=== PATIENT | female | born 2005 | race Caucasian/White ===

== ENCOUNTER 2024-05-24 14:45 | Inpatient (IN) ==
--- NOTE | 2024-05-24 15:32 | Emergency Department Note ---
Impression & Plan Depression with suicidal ideation, Cystitis ED Provider Note NAME: DAVID VORA AGE: 19 SEX: F : 2005 ARRIVES VIA: Walk-In INFORMANT: Patient, ED PROVIDER(S): Terence Fofana MD CHIEF COMPLAINT: Suicidal ideation with plan, outpatient referral MEDICAL DECISION MAKING: Patient presents with the above. Blood work was obtained. Patient was seen and evaluated by the psych family caseworker after being medically cleared. Referrals were made and the patient was accepted to [facility]. Patient's urinalysis shows concern for bladder infection the patient was ordered Keflex. Discussion w/ other healthcare providers: ED case management Prior /Outside records reviewed: none Differential diagnosis: Mood disorder, infection, hypoglycemia, electrolyte abnormalities, dehydration, medication side effect among others were considered. Diagnostics, as interpreted by me: ECG: None Medical decision rules: Suicide risk severity score Imaging studies: None HPI: Patient presents due to concern for suicidal ideation with plan. The patient reports that she had thoughts last evening of slitting her wrists in order to kill herself. The patient states that she has had prior thoughts of self-harm before but is never completely gone through with it. The patient has done smaller cuts prior. The patient states that she is in the middle of a current "episode." Patient reports that she did establish with Send was seen in person today and referred here for further evaluation and treatment. Patient states that her sleep and appetite have been poor. 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 She does get along with her roommate. No HI or AVH. Patient does not take any current medication for her depression. Patient currently not willing to elaborate as to the cause of this current "episode." PAST MEDICAL HISTORY: See Below PAST SURGICAL HISTORY: See Below SOCIAL HISTORY: See Below HOME MEDICATIONS: See Below ALLERGIES: See Below VITALS: See Below PHYSICAL EXAMINATION: GENERAL: Tearful but nontoxic in appearance. EYE EXAM: Normal conjunctiva. PERRL, no anisocoria and EOM's grossly intact w/o pain. OROPHARYNX: Moist mucus membranes, grossly normal dentition. NECK: Trachea midline, no stridor. Supple, no nuchal rigidity, no adenopathy, non-tender. No signs of meningismus. FROM of the neck with good chin to chest and neck extension. LUNGS: Clear to auscultation. Normal chest wall mechanics. HEART: NSR, no MRG. ABDOMEN: Abdomen soft, non-tender, no masses, no rebound or guarding. BACK: No CVA TTP. SKIN: No rashes and no bruising. UPPER EXTREMITIES: Upper extremities are grossly normal. LOWER EXTREMITIES: Grossly normal, no edema. NEURO EXAM: A&O x3, cranial nerves II-XII grossly intact, normal speech, moves all 4 extremities. Psych: Tearful, positive SI with plan denies HI or AVH. Past Med/Surg History Problem List (Updated 05/24/24 @ 21:29 by Terence Fofana MD) Cystitis (Acute) Depression with suicidal ideation (Acute) Social History Smoking Status: Never smoker Preferred Language: Vietnamese Communication Ability: Effective Technician Inventory Specialist Required: No Beliefs That Will Affect Care: None Feels Safe at Home: Yes Gender Identity: Female Assistive Devices: Glasses Allergies Allergies Allergy/AdvReac Type Severity Reaction Status Date / Time No Known Allergies Allergy Unverified 05/24/24 16:22 Home Meds Home Medications Medication Instructions Recorded Confirmed No Known Home Medications 05/24/24 05/24/24 Results & Data (ED) Vital Signs Vital Signs - 24 hr 05/24/24 15:13 05/24/24 15:43 05/24/24 18:21 Temperature 36.6 C Temperature Source Skin Pulse Rate 105 H Pulse Rate [Finger] 80 Respiratory Rate 18 16 Blood Pressure 140/90 Blood Pressure [Right Arm] 127/78 Blood Pressure Mean 106 Blood Pressure Mean [Right Arm] 94 Pulse Oximetry 98 98 Oxygen Delivery Method Room Air Room Air Sepsis Recent Fever Within 48 Hours No Sepsis New/Unexplained Change in Mental Status No Sepsis Action Taken by Nursing No Action Required Home Medications Current Medication List: was personally reviewed by me Laboratory Data Attestation: I reviewed the patient's lab results. 05/24/24 15:38 05/24/24 15:38 Lab Results 05/24/24 05/24/24 Range/Units 15:25 15:38 WBC 7.33 (4.8-10.8) K/ul RBC 4.69 (4.20-5.40) M/uL Hgb 14.6 (12.0-16.0) g/dl Hct 42.0 (37.0-47.0) % MCV 89.6 (80.0-100.0) fL MCH 31.1 (25.0-34.0) pg MCHC 34.8 (32.0-36.0) g/dL RDW Std Deviation 41.4 (36.4-46.3) fL RDW Coeff of Jian 12.6 (11.5-14.5) % Plt Count 261 (130-400) K/uL MPV 10.4 (9.4-12.4) fL Immature Gran % (Auto) 0.4 % Neut % (Auto) 79.7 % Lymph % (Auto) 15.3 % [place] % (Auto) 4.1 % Eos % (Auto) 0.0 % Baso % (Auto) 0.5 % Neut # (Auto) 5.84 (1.40-6.50) K/uL Lymph # (Auto) 1.12 L (1.20-3.40) K/uL [place] # (Auto) 0.30 (0.11-0.59) K/uL Eos # (Auto) 0.00 (0.00-0.50) K/uL Baso # (Auto) 0.04 (0.00-0.20) K/uL Immature Gran # (Auto) 0.03 (0.01-0.20) K/uL Sodium 139 (136-145) mmol/L Potassium 3.7 (3.5-5.1) mmol/L Chloride 105 (98-107) mmol/L Carbon Dioxide 24 (21-32) mmol/L Anion Gap 10 (3-11) BUN 12 (6-23) mg/dl Creatinine 0.75 (0.6-1.2) mg/dl Est Cr Clr Drug Dosing 102.5 ml/min eGFR 116.09 BUN/Creatinine Ratio 16.0 (10-20) Glucose 105 H (70-99(Fasting)) mg/dl Calcium 10.6 H (8.6-10.3) mg/dl Total Bilirubin 0.9 (0.2-1.0) mg/dl AST 18 (13-39) U/L ALT 16 (7-52) U/L Alkaline Phosphatase 82 (34-104) U/L Total Protein 8.3 (6.0-8.3) gm/dl Albumin 5.1 H (3.4-5.0) gm/dl Globulin 3.2 (2.5-4.0) gm/dl Albumin/Globulin Ratio 1.6 (0.9-2) TSH 0.703 (0.300-4.500) uIu/ml Urine Color Dark Yellow Urine Appearance Cloudy A (Clear) Urine pH 6.0 (4.5-7.5) Ur Specific [place] 1.032 H (1.000-1.030) Urine Protein 1+ H (Negative) Urine Glucose (UA) Negative (Negative) Urine Ketones 3+ H (Negative) Urine Blood Trace H (Negative) Urine Nitrite Positive A (Negative) Urine Bilirubin 1+ H (Negative) Urine Urobilinogen Negative (Negative) Ur Leukocyte Esterase Trace H (Negative) Urine WBC (Auto) 0-5 (0-5) /hpf Urine RBC (Auto) 3-5 H (0-2) /hpf U Hyaline Cast (Auto) 0-2 (0-2) /lpf U Epithel Cells (Auto) 6-10 H (0-2) /hpf Urine Bacteria (Auto) 4+ H (None Seen) Urine Test Negative (Negative) Salicylates < 3.0 L (3.0-30) mg/dl Urine Opiates Screen Neg (Neg) Ur Methadone, Qual Neg (Neg) Urine Fentanyl Screen Neg (Neg) Acetaminophen < 3 L (10-30) ug/ml Urine Barbiturates Neg (Neg) Ur Phencyclidine (PCP) Neg (Neg) U Amphetamin/Meth Scrn Neg (Neg) MDMA (Ecstasy) Screen Neg (Neg) U Benzodiazepines Scrn Neg (Neg) Ur Cocaine Metabolite Neg (Neg) U Marijuana (THC) Screen Pos H (Neg) Ethyl Alcohol mg/dL < 10.0 (<10.0) mg/dl SARS-CoV-2, RNA, NAAT NEGATIVE (NEGATIVE) Administered Medications Discontinued Medications Cephalexin HCl (Cephalexin 250 Mg Cap) 500 mg PO NOW ONE Stop: 05/24/24 17:32 Last Admin: 05/24/24 17:55 Dose: 500 mg Documented By: GONZÁLEZ Discharge Plan Visit Data Chief Complaint: Mental Health Evaluation Stated Complaint: CAPS REF, MENTAL HEALTH EVAL ED Provider: Terence Fofana Discharge Problem: Depression with suicidal ideation, Cystitis Patient Disposition: Admitted As Inpatient Discharge Instructions Interventions: ED Discharge Assessment Last Done: 05/24/24 18:21
[2024-05-24 15:54] LABS: Basophils # (auto) 0.04 K/uL (0.00-0.20); Basophils % (auto) 0.5 %; Hemoglobin 14.6 g/dl (12.0-16.0); Immature Granulocytes # (auto) 0.03 K/uL (0.01-0.20); Immature Granulocytes % (auto) 0.4 %; Lymphocytes # (auto) 1.12 K/uL (1.20-3.40); Lymphocytes % (auto) 15.3 %; Mean Corpuscular Hemoglobin 31.1 pg (25.0-34.0); Mean Corpuscular Hgb Conc 34.8 g/dL (32.0-36.0); Mean Corpuscular Volume 89.6 fL (80.0-100.0); Mean Platelet Volume 10.4 fL (9.4-12.4); Monocytes % (auto) 4.1 %; Neutrophils # (auto) 5.84 K/uL (1.40-6.50); Neutrophils % (auto) 79.7 %; Platelet Count 261 K/uL (130-400); RDW Coefficient of Variation 12.6 % (11.5-14.5); RDW Standard Deviation 41.4 fL (36.4-46.3); Red Blood Count 4.69 M/uL (4.20-5.40); White Blood Count 7.33 K/ul (4.8-10.8)
[2024-05-24 15:58] LABS: Pregnancy Test, Urine Negative (Negative)
[2024-05-24 16:09] LABS: Albumin Level 5.1 gm/dl (3.4-5.0); Bilirubin,Total 0.9 mg/dl (0.2-1.0); Calcium 10.6 mg/dl (8.6-10.3); Potassium 3.7 mmol/L (3.5-5.1)
[2024-05-24 16:14] LABS: Acetaminophen < 3 ug/ml (10-30); Salicylate < 3.0 mg/dl (3.0-30)
[2024-05-24 16:15] LABS: Albumin Globulin Ratio 1.6 (0.9-2); Creatinine Clr Calc Pharmacy 102.5 ml/min; Globulin 3.2 gm/dl (2.5-4.0); Total Protein 8.3 gm/dl (6.0-8.3)
[2024-05-24 16:26] LABS: Amphetamines+Metham, Urine Neg (Neg); Barbiturates, Urine Neg (Neg); Benzodiazepine, Urine Neg (Neg); Cocaine, Urine Neg (Neg); Fentanyl, Urine Neg (Neg); MDMA (Ecstacy), Urine Neg (Neg); Marijuana, Urine Pos (Neg); Methadone, Urine Neg (Neg); Opiate, Urine Neg (Neg); Phencyclidine, Urine Neg (Neg)
[2024-05-24 16:27] LABS: Thyroid Stimulating Hormone 0.703 uIu/ml (0.300-4.500)
[2024-05-24 16:29] LABS: Appearance Urine Cloudy (Clear); Bacteria Urine Automated 4+ (None Seen); Bilirubin Urine 1+ (Negative); Blood Urine Trace (Negative); Cast Urine Automated 0-2 /lpf (0-2); Color Urine Dark Yellow; Glucose Urine UA Negative (Negative); Ketones Urine 3+ (Negative); Leukocyte Esterase Urine Trace (Negative); Nitrite Urine Positive (Negative); Protein Urine 1+ (Negative); Specific Gravity Urine 1.032 (1.000-1.030); Urobilinogen Urine Negative (Negative); WBC Urine Automated 0-5 /hpf (0-5)
[2024-05-24] MEDS ORDERED: SODIUM CHLORIDE 0.65% NA SOLN 45 ML (OCEAN) PRN (17:51)
[2024-05-24] MEDS ORDERED: BISMUTH SUBSALICYLATE 262 MG CHEW PO PRN (17:51)
[2024-05-24] MEDS ORDERED: MAGNESIUM HYDROXIDE SUSP 30 ML UDC PO PRN (17:51)
[2024-05-24] MEDS ORDERED: ALUMINUM/MAGNESIUM SUSP 30 ML UDC PO PRN (17:51)
[2024-05-24] MEDS: cephALEXin 250 MG CAP PO ONE (17:55)
[2024-05-24] MEDS: ACETAMINOPHEN 325 MG TAB PO PRN (22:01)
[2024-05-24] MEDS: hydrOXYzine HCl 25 MG TAB PO PRN (22:46)
--- NOTE | 2024-05-25 09:14 | History & Physical ---
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 Diagnostically consistent with major depressive disorder, generalized anxiety disorder with panic attacks, sleep onset insomnia and possible cluster B t raits/BPD. Discussed medication treatment options in detail. Discussed risks, benefits and alternatives. Patient would like to start and consented to sertraline for MDD/QIANA. Reviewed side effects including but not limited to: GI, THAKUR, sexual side effects, and counseled on black box warning of potential for emergence of or increased SI and need to let staff know should this occur or should they feel unsafe. Also discussed importance of seeking emergency care following discharge if this side effect occurs in the future. Overall I spent a total of 75 minutes for this admission including review of chart records, review of labwork, direct evaluation of the patient, counseling the patient, ordering medication, risk assessment, discussion with the psychiatric liason RN and documentation in the electronic health record. (1) Depression with suicidal ideation: (2) MDD (major depressive disorder), recurrent episode, severe: (3) Generalized anxiety disorder with panic attacks: Plan 05/25/2024: The patient was admitted to the [facility] (health system mental health unit) on q15 min checks (behavioral with suicide precautions) for safety. The patient will participate in group, recreational, and milieu therapies and will be offered additional individual and family sessions as clinically appropriate. -Start Zoloft 25mg daily -Reviewed that Vistaril is available prn for anxiety/insomnia -Discussed option for [facility] that includes CBT/DBT after discharge if they accept her insurance vs individual therapist -Symptom questionnaire: [place] BPD screen Inventory Assets Strengths: supportive relationships, willing to get treatment Needs: safety and stabilization, medication adjustment, additional coping skills, increased outpatient services Suicide Risk Level Suicide Risk Level: High-Moderate (q15 min suicide checks) (depression with SI with plan prior to admission, feels safe in the hospital and feels able to ask for support) Risk Factors Assessment Male: No : Yes Do You Have Access To A Gun?: No Health Problems: No Mental Health Diagnoses: Yes Substance Use Disorders: No Previous Attempt: Yes Family History of Suicide: No Previous Psychiatric Hospitalization: No Hopelessness: Yes Protective Factors Assessment 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 Chief Complaint "I'm trying to keep myself alive". History of Present Illness She presents for psychiatric admission for worsening depression and SI with plan of cutting herself. She cannot identify any recent stressors, she notes this depressive episode started at the end of March and "I should have been so happy I love the holidays and had no stress but instead I was so sad". She notes "I can't feel happiness and I don't care about things". She's tearful discussing her distress from the depression and anxiety. Recent self-harm via cutting a few weeks ago. Her mother, a nurse, does not understand mental health, which has been a source of frustration for Khadijah. She endorses depressive symptoms since late March including tearfulness, anhedonia (never wants to watch movies or do anything she typically enjoys), decreased motivation, social isolation, helplessness, hopelessness, decreased energy, decreased appetite and also restricts, and difficulty falling asleep. SI has been occurring for a long time at a baseline level but it intensified significantly over recent days to the point she worried she would act on the thoughts and almost the day prior to admission. Her depression, anxiety and SI seems to worsen at night with racing internal anxious thoughts. She also endorses symptoms of anxiety including generalized worries, nausea, shakiness, easily overwhelmed, racing thoughts and panic attacks (has had 4-5 this month, typically occurs at night). She recently quit smoking marijuana, which she had been using to manage her symptoms, including appetite and anxiety. She is not currently prescribed any psychiatric medications. Psychiatric ROS notable for no current nor history of symptoms of abhilash, psychosis, PTSD, OCD. She describes a pattern of some restrictive eating since about 6th grade-often worsens with stressors, has been eating one meal a day and some snacks recently. Self-harms via cutting. Past Psychiatric History Current Psychiatric Diagnosis: Unspecified Depressive Disorder Outpatient Services: none Previous Psych Admissions: none Do You Have Access To A Gun?: No History of Previous Suicide Attempt: Yes Describe Attempts in the Past: 5 years ago attempt via cutting, never sought tx Past Medication Trials: none Past Head Trauma/Neuro History hx two concussions Allergies Allergy/AdvReac Type Severity Reaction Status Date / Time No Known Allergies Allergy Unverified 05/24/24 16:22 Home Medications Medication Instructions Recorded Confirmed Type No Known Home Medications 05/24/24 05/24/24 History Family History Family History of: Depression and Alcoholism/Drug Abuse (father, maternal side) Family Mental Health History Comment: Cousin- depression Aunt- depression Alcohol History Hx of Alcohol Use Over the Past 12 Months: No AUDIT Total Score: 0 Smoking Use Have You Smoked or Used Tobacco Products in the Last 30 Days: No Smoking Status: Never smoker Substance History Hx of Prescription Med Misuse Over the Past 12 Months: No Hx of Over the Counter Med Misuse Over the Past 12 Months: No Hx of Inhalent Misuse Over the Past 12 Months: No Hx of Organic Substance Use Over the Past 12 Months: Yes (daily marijuana use) Hx of Illegal Substances/Street Drug Use Over Past 12 Months: No Problems as a Result of Past Substance Use: None Identified Stopping using cannabis on Wednesday-liked that it helped with appetite but didn't like how long it impacted her and the stigma of it. Personal History Living Arrangements: Dorm Childhood: [place], has a younger sister, parents when she was [age] Highest Grade Completed: College ([employer] in [employer] science) Employment Status: Student Marital Status: Single Beliefs That Will Affect Care: None Current Legal Problems: No Hx Legal Problems: No Hx Traumatic Life Events: Yes (parents at young age, a lot of instability when at her fathers) Patient History Medical History (Updated 05/25/24 @ 14:54 by Shira Cardoza MD) Asthma Social History Smoking Status: Never smoker Preferred Language: Haitian Communication Ability: Effective Civil Manager Required: No Beliefs That Will Affect Care: None Feels Safe at Home: Yes Gender Identity: Female Assistive Devices: Glasses Review of Systems Review of Systems: All systems reviewed & are unremarkable except as noted in HPI & below Physical Exam Psychiatric: Orientation: alert and oriented x 3 Apperance: appropriately dressed and appropriately groomed Eye Contact: good eye contact Motor Behavior: no abnormal motor movements Speech: normal rate/rhythm/volume of speech Affect: + depressed affect and + tearful affect Mood: + depressed mood and + anxious mood Thought Process: goal directed thought process Thought Content: reality based without delusions Suicidal Thoughts: denies suicidal plan (none for hospital) and denies suicidal intent; + reports suicidal thoughts Homicidal Thoughts: denies homicidal thoughts Hallucinations: no auditory hallucinations and no visual hallucinations Cognition: recent memory grossly intact, remote memory grossly intact, attention grossly intact and language grossly intact Estimated Intelligence: consistent with education level Insight: + fair insight Judgment: + fair judgement Vital Signs (Past 24 Hours): Last Vital Signs Temp 36.7 C 05/25/24 06:00 Pulse 92 H 05/25/24 06:35 Resp 18 05/25/24 06:00 BP 122/83 05/25/24 06:35 Pulse Ox 99 05/25/24 06:00 O2 Del Method Room Air 05/25/24 06:00 Exam Statement: A physical exam was performed in the ED by Dr. Fofana for the purposes of medical clearance. I accept that physical as correct and adequate for the purposes of the inpatient physical exam. Results & Data ([facility]) Laboratory Results Laboratory Results - last 24 hr 05/24/24 05/24/24 15:25 15:38 WBC 7.33 RBC 4.69 Hgb 14.6 Hct 42.0 MCV 89.6 MCH 31.1 MCHC 34.8 RDW Std Deviation 41.4 RDW Coeff of Jian 12.6 Plt Count 261 MPV 10.4 Immature Gran % (Auto) 0.4 Neut % (Auto) 79.7 Lymph % (Auto) 15.3 [place] % (Auto) 4.1 Eos % (Auto) 0.0 Baso % (Auto) 0.5 Neut # (Auto) 5.84 Lymph # (Auto) 1.12 L [place] # (Auto) 0.30 Eos # (Auto) 0.00 Baso # (Auto) 0.04 Immature Gran # (Auto) 0.03 Sodium 139 Potassium 3.7 Chloride 105 Carbon Dioxide 24 Anion Gap 10 BUN 12 Creatinine 0.75 Est Cr Clr Drug Dosing 102.5 eGFR 116.09 BUN/Creatinine Ratio 16.0 Glucose 105 H Calcium 10.6 H Total Bilirubin 0.9 AST 18 ALT 16 Alkaline Phosphatase 82 Total Protein 8.3 Albumin 5.1 H Globulin 3.2 Albumin/Globulin Ratio 1.6 TSH 0.703 Urine Color Dark Yellow Urine Appearance Cloudy A Urine pH 6.0 Ur Specific [place] 1.032 H Urine Protein 1+ H Urine Glucose (UA) Negative Urine Ketones 3+ H Urine Blood Trace H Urine Nitrite Positive A Urine Bilirubin 1+ H Urine Urobilinogen Negative Ur Leukocyte Esterase Trace H Urine WBC (Auto) 0-5 Urine RBC (Auto) 3-5 H U Hyaline Cast (Auto) 0-2 U Epithel Cells (Auto) 6-10 H Urine Bacteria (Auto) 4+ H Urine Test Negative Salicylates < 3.0 L Urine Opiates Screen Neg Ur Methadone, Qual Neg Urine Fentanyl Screen Neg Acetaminophen < 3 L Urine Barbiturates Neg Ur Phencyclidine (PCP) Neg U Amphetamin/Meth Scrn Neg MDMA (Ecstasy) Screen Neg U Benzodiazepines Scrn Neg Ur Cocaine Metabolite Neg U Marijuana (THC) Screen Pos H U Marijuana THC Carboxy Pending Drug Screen Comment Pending Ethyl Alcohol mg/dL < 10.0 SARS-CoV-2, RNA, NAAT NEGATIVE Current Inpatient Medications Current Inpatient Medications: Current Inpatient Medications Acetaminophen (Acetaminophen 325 Mg Tab) 650 mg PO Q4H PRN PRN Reason: Headache or Minor Fever Stop: 06/23/24 17:50 Last Admin: 05/24/24 22:01 Dose: 650 mg Al Hydrox/Mg Hydrox/Simethicone (Aluminum/Magnesium Susp 30 Ml Udc) 30 ml PO Q4H PRN PRN Reason: GI Upset Stop: 06/23/24 17:50 Bismuth Subsalicylate (Bismuth Subsalicylate 262 Mg Chew) 2 tab PO Q30M PRN PRN Reason: Loose Stool/Diarrhea Stop: 06/23/24 17:50 Hydroxyzine HCl (Hydroxyzine Hcl 25 Mg Tab) 50 mg PO HSZ PRN PRN Reason: Insomnia Stop: 06/23/24 17:50 Last Admin: 05/24/24 22:46 Dose: 50 mg Hydroxyzine HCl (Hydroxyzine Hcl 25 Mg Tab) 25 mg PO Q4H PRN PRN Reason: Anxiety Stop: 06/23/24 17:50 Magnesium Hydroxide (Magnesium Hydroxide Susp 30 Ml Udc) 30 ml PO DAILY PRN PRN Reason: Constipation Stop: 06/23/24 17:50 Sodium Chloride (Sodium Chloride 0.65% Na Soln 45 Ml ([place])) 1 - 2 sprays NA PRN PRN PRN Reason: Nasal Dryness/Congestion Stop: 06/23/24 17:50
[2024-05-25] MEDS: SERTRALINE HCL 50 MG TABLET PO ONE (16:52)
[2024-05-25] MEDS: hydrOXYzine HCl 25 MG TAB PO PRN (18:44)
[2024-05-26] MEDS: SERTRALINE HCL 50 MG TABLET PO SCH (09:15)
--- NOTE | 2024-05-26 09:32 | Psychiatric Progress Note ---
Date of Service May 26, 2024 Impression / Recommendations Impression DAVID VORA is a 19-year-old woman and [employer] student jose who currently lives [place] campus with 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 Diagnostically consistent with major depressive disorder, generalized anxiety disorder with panic attacks, sleep onset insomnia and likely component of BPD. A: Mood remains variable, still with SI today. Tolerating sertraline so far, she consents to dose titration. She would like to try something to help with sleep. Discussed medication treatment options in detail. Discussed risks, benefits and alternatives. Patient would like to start and consented to clonidine as off- label for sleep/anxiety given her concerns about possible weight gain with other options like trazodone. Reviewed side effects including but not limited to: low BP, syncope. Reviewed Edith BPD screen positive and consistent with possible BPD. Reviewed online DBT resources, encouraged IOP. Overall, I spent a total of 35 minutes on this case including meeting with the patient, reviewing the chart, nursing report, multidisciplinary team meeting, orders, and documentation. (1) Depression with suicidal ideation: (2) MDD (major depressive disorder), recurrent episode, severe: (3) Generalized anxiety disorder with panic attacks: (4) Borderline personality disorder in adult: Plan 05/26/2024: -Increase sertraline to 50mg daily -Start clonidine 0.1mg HS 05/25/2024: The patient was admitted to the [facility] ([facility] mental health unit) on q15 min checks (behavioral with suicide precautions) for safety. The patient will participate in group, recreational, and milieu therapies and will be offered additional individual and family sessions as clinically appropriate. -Start Zoloft 25mg daily -Reviewed that Vistaril is available prn for anxiety/insomnia -[facility] after discharge if they accept her insurance vs individual therapist -Symptom questionnaire: Edith BPD screen Inventory Assets Strengths: supportive relationships, willing to get treatment Needs: safety and stabilization, medication adjustment, additional coping skills, increased outpatient services Suicide Risk Level Suicide Risk Level: High-Moderate (q15 min suicide checks) (depression with SI with plan prior to admission, feels safe in the hospital and feels able to ask for support) Risk Factors Assessment Male: No : Yes Do You Have Access To A Gun?: No Health Problems: No Mental Health Diagnoses: Yes Substance Use Disorders: No Previous Attempt: Yes Family History of Suicide: No Previous Psychiatric Hospitalization: No Hopelessness: Yes Protective Factors Assessment 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 Chief Complaint "it's like a rollercoaster today". Review of Systems Sleep Information Total Hours of Sleep: 5.75 Meal Information Percent Meal Consumed - Breakfast: 25 Percent Meal Consumed - Lunch: 50 Percent Meal Consumed - Dinner: 25 Subjective Subjective Patient was seen & assessed and interval progress reviewed with treatment team. Attending groups, anxious. Took prn Vistaril. Today reports her mood has been up and down. A lot of anxiety and SI this morning, lessened with distraction of groups. She denies any medication side effects except felt a little "foggy" at times but still able to concentrate on things. Finding Vistaril helpful for anxiety and sleep. She would like to try something scheduled for sleep. Physical Exam Psychiatric Orientation: alert and oriented x 3 Apperance: appropriately dressed and appropriately groomed Eye Contact: good eye contact Motor Behavior: no abnormal motor movements Speech: normal rate/rhythm/volume of speech Affect: + anxious affect and + constricted affect Mood: + depressed mood and + anxious mood Thought Process: goal directed thought process Thought Content: reality based without delusions Suicidal Thoughts: denies suicidal plan (none for hospital) and denies suicidal intent; + reports suicidal thoughts Homicidal Thoughts: denies homicidal thoughts Hallucinations: no auditory hallucinations and no visual hallucinations Cognition: recent memory grossly intact, remote memory grossly intact, attention grossly intact and language grossly intact Estimated Intelligence: consistent with education level Insight: + fair insight Judgment: + fair judgement Vital Signs (Past 24 Hours) Last Vital Signs Temp 37 C 05/26/24 06:38 Pulse 89 05/26/24 06:39 Resp 16 05/26/24 06:38 BP 101/67 02/07/25 06:39 Pulse Ox 99 05/25/24 06:00 O2 Del Method Room Air 05/25/24 06:00 Results & Data ([facility]) Current Inpatient Medications Current Inpatient Medications: Current Inpatient Medications Acetaminophen (Acetaminophen 325 Mg Tab) 650 mg PO Q4H PRN PRN Reason: Headache or Minor Fever Stop: 06/23/24 17:50 Last Admin: 05/24/24 22:01 Dose: 650 mg Al Hydrox/Mg Hydrox/Simethicone (Aluminum/Magnesium Susp 30 Ml Udc) 30 ml PO Q4H PRN PRN Reason: GI Upset Stop: 06/23/24 17:50 Bismuth Subsalicylate (Bismuth Subsalicylate 262 Mg Chew) 2 tab PO Q30M PRN PRN Reason: Loose Stool/Diarrhea Stop: 06/23/24 17:50 Hydroxyzine HCl (Hydroxyzine Hcl 25 Mg Tab) 50 mg PO HSZ PRN PRN Reason: Insomnia Stop: 06/23/24 17:50 Last Admin: 05/26/24 01:25 Dose: 50 mg Hydroxyzine HCl (Hydroxyzine Hcl 25 Mg Tab) 25 mg PO Q4H PRN PRN Reason: Anxiety Stop: 06/23/24 17:50 Last Admin: 05/25/24 18:44 Dose: 25 mg Magnesium Hydroxide (Magnesium Hydroxide Susp 30 Ml Udc) 30 ml PO DAILY PRN PRN Reason: Constipation Stop: 06/23/24 17:50 Sertraline HCl (Sertraline Hcl 50 Mg Tablet) 25 mg PO QAM IRASEMA Stop: 06/25/24 08:59 Last Admin: 05/26/24 09:15 Dose: 25 mg Sodium Chloride (Sodium Chloride 0.65% Na Soln 45 Ml ([place])) 1 - 2 sprays NA PRN PRN PRN Reason: Nasal Dryness/Congestion Stop: 06/23/24 17:50 Mental Health & Subst Abuse Tx Therapist Name of Therapist: none Data Security Consultant Name of Data Security Consultant: none
[2024-05-26] MEDS: cloNIDine HCL 0.1 MG TAB PO SCH (21:35)
[2024-05-27] MEDS: SERTRALINE HCL 50 MG TABLET PO SCH (09:31)
--- NOTE | 2024-05-27 10:59 | Psychiatric Progress Note ---
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 Diagnostically consistent with major depressive disorder, generalized anxiety disorder with panic attacks, sleep onset insomnia and likely component of BPD. A: Mood remains variable, still with SI today. Tolerating sertraline so far, she consents to dose titration. She would like to try something to help with sleep. Discussed medication treatment options in detail. Discussed risks, benefits and alternatives. Patient would like to start and consented to clonidine as off- label for sleep/anxiety given her concerns about possible weight gain with other options like trazodone. Reviewed side effects including but not limited to: low BP, syncope. Reviewed Edith BPD screen positive and consistent with possible BPD. Reviewed online DBT resources, encouraged IOP. Overall, I spent a total of 35 minutes on this case including meeting with the patient, reviewing the chart, nursing report, multidisciplinary team meeting, orders, and documentation. (1) Depression with suicidal ideation: (2) MDD (major depressive disorder), recurrent episode, severe: (3) Generalized anxiety disorder with panic attacks: (4) Borderline personality disorder in adult: Plan 05/27/24: Continue current meds Social meeting. 05/26/2024: -Increase sertraline to 50mg daily -Start clonidine 0.1mg HS 05/25/2024: The patient was admitted to the [facility] ([facility] mental health unit) on q15 min checks (behavioral with suicide precautions) for safety. The patient will participate in group, recreational, and milieu therapies and will be offered additional individual and family sessions as clinically appropriate. -Start Zoloft 25mg daily -Reviewed that Vistaril is available prn for anxiety/insomnia -[facility] discharge if they accept her insurance vs individual therapist -Symptom questionnaire: Edith BPD screen Inventory Assets Strengths: supportive relationships, willing to get treatment Needs: safety and stabilization, medication adjustment, additional coping skills, increased outpatient services Suicide Risk Level Suicide Risk Level: High-Moderate (q15 min suicide checks) (depression with SI with plan prior to admission, feels safe in the hospital and feels able to ask for support) Risk Factors Assessment Male: No : Yes Do You Have Access To A Gun?: No Health Problems: No Mental Health Diagnoses: Yes Substance Use Disorders: No Previous Attempt: Yes Family History of Suicide: No Previous Psychiatric Hospitalization: No Hopelessness: Yes Protective Factors Assessment 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 Chief Complaint "I am doing better". Review of Systems Sleep Information Total Hours of Sleep: 6 Meal Information Percent Meal Consumed - Breakfast: 75 Percent Meal Consumed - Lunch: 25 Percent Meal Consumed - Dinner: 40 Subjective Subjective Patient was seen & assessed and interval progress reviewed with nursing and social work. She endorses improved mood ("8/10"), denied side effects from current meds. She demonstrates improved insight. Sleep is improved (6 hours last night). Appears engaged and participating in unit activities. Social meeting planning in process. Physical Exam Psychiatric Orientation: alert and oriented x 3 Apperance: appropriately dressed and appropriately groomed Eye Contact: good eye contact Motor Behavior: no abnormal motor movements Speech: normal rate/rhythm/volume of speech Affect: + depressed affect, + anxious affect, + tearful affect and + constricted affect Mood: + depressed mood and + anxious mood Thought Process: goal directed thought process Thought Content: reality based without delusions Suicidal Thoughts: denies suicidal plan (none for hospital) and denies suicidal intent; + reports suicidal thoughts Homicidal Thoughts: denies homicidal thoughts Hallucinations: no auditory hallucinations and no visual hallucinations Cognition: recent memory grossly intact, remote memory grossly intact, attention grossly intact and language grossly intact Estimated Intelligence: consistent with education level Insight: + fair insight Judgment: + fair judgement Vital Signs (Past 24 Hours) Last Vital Signs Temp 36.9 C 05/27/24 06:30 Pulse 87 05/27/24 06:31 Resp 16 05/27/24 06:30 BP 107/78 05/27/24 06:31 Pulse Ox 99 05/25/24 06:00 O2 Del Method Room Air 05/25/24 06:00 Results & Data ([facility]) Current Inpatient Medications Current Inpatient Medications: Current Inpatient Medications Acetaminophen (Acetaminophen 325 Mg Tab) 650 mg PO Q4H PRN PRN Reason: Headache or Minor Fever Stop: 06/23/24 17:50 Last Admin: 05/24/24 22:01 Dose: 650 mg Al Hydrox/Mg Hydrox/Simethicone (Aluminum/Magnesium Susp 30 Ml Udc) 30 ml PO Q4H PRN PRN Reason: GI Upset Stop: 06/23/24 17:50 Bismuth Subsalicylate (Bismuth Subsalicylate 262 Mg Chew) 2 tab PO Q30M PRN PRN Reason: Loose Stool/Diarrhea Stop: 06/23/24 17:50 Clonidine HCl (Clonidine Hcl 0.1 Mg Tab) 0.1 mg PO HS IRASEMA Stop: 06/25/24 21:59 Last Admin: 05/26/24 21:35 Dose: 0.1 mg Hydroxyzine HCl (Hydroxyzine Hcl 25 Mg Tab) 50 mg PO HSZ PRN PRN Reason: Insomnia Stop: 06/23/24 17:50 Last Admin: 05/26/24 01:25 Dose: 50 mg Hydroxyzine HCl (Hydroxyzine Hcl 25 Mg Tab) 25 mg PO Q4H PRN PRN Reason: Anxiety Stop: 06/23/24 17:50 Last Admin: 05/25/24 18:44 Dose: 25 mg Magnesium Hydroxide (Magnesium Hydroxide Susp 30 Ml Udc) 30 ml PO DAILY PRN PRN Reason: Constipation Stop: 06/23/24 17:50 Sertraline HCl (Sertraline Hcl 50 Mg Tablet) 50 mg PO QAM IRASEMA Stop: 06/26/24 08:59 Last Admin: 05/27/24 09:31 Dose: 50 mg Sodium Chloride (Sodium Chloride 0.65% Na Soln 45 Ml ([place])) 1 - 2 sprays NA PRN PRN PRN Reason: Nasal Dryness/Congestion Stop: 06/23/24 17:50 Mental Health & Subst Abuse Tx Psychiatrist Name of Psychiatrist: Kobe Gill Date Of Appointment With Psychiatric Provider: 05/30/2024 Time of Appointment with Psychiatrist: 5:00pm Therapist Name of Therapist: Kobe Gill Internal Medicine Nurse Name of Internal Medicine Nurse: none Post Discharge Appointments Primary Care Physician Name Of Family Doctor/PCP: Shane
--- NOTE | 2024-05-28 11:48 | Psychiatric Progress Note ---
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 Diagnostically consistent with major depressive disorder, generalized anxiety disorder with panic attacks, sleep onset insomnia and likely component of BPD. A: Improved mood on current treatment, but still has significant late afternoon anxiety which is part of a long-standing pattern. Will add a 4pm low dose of Clonidine to target these symptoms. Reviewed side effects including but not limited to: low BP, syncope. Note earlier documentation of possible BPD with review of online DBT resources. Overall, I spent a total of 35 minutes on this case including meeting with the patient, reviewing the chart, nursing report, multidisciplinary team meeting, orders, and documentation. (1) Depression with suicidal ideation: (2) MDD (major depressive disorder), recurrent episode, severe: (3) Generalized anxiety disorder with panic attacks: (4) Borderline personality disorder in adult: Plan 05/28/24: Added Clonidine 0.5mg q 4pm starting today to target evening anxiety as this was effective yesterday. Monitor BP, AR. Continue other medication. Possible d/c 05/30/24. 05/27/24: Continue current meds Social meeting. 05/26/2024: -Increase sertraline to 50mg daily -Start clonidine 0.1mg HS 05/25/2024: The patient was admitted to the [facility] ([facility] mental health unit) on q15 min checks (behavioral with suicide precautions) for safety. The patient will participate in group, recreational, and milieu therapies and will be offered additional individual and family sessions as clinically appropriate. -Start Zoloft 25mg daily -Reviewed that Vistaril is available prn for anxiety/insomnia -Discussed option for [facility] that includes CBT/DBT after discharge if they accept her insurance vs individual therapist -Symptom questionnaire: Edith BPD screen Inventory Assets Strengths: supportive relationships, willing to get treatment Needs: safety and stabilization, medication adjustment, additional coping skills, increased outpatient services Suicide Risk Level Suicide Risk Level: High-Moderate (q15 min suicide checks) (depression with SI with plan prior to admission, feels safe in the hospital and feels able to ask for support) Risk Factors Assessment Male: No : Yes Do You Have Access To A Gun?: No Health Problems: No Mental Health Diagnoses: Yes Substance Use Disorders: No Previous Attempt: Yes Family History of Suicide: No Previous Psychiatric Hospitalization: No Hopelessness: Yes Protective Factors Assessment 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 Chief Complaint "I feel better". Review of Systems Sleep Information Total Hours of Sleep: 6.5 Meal Information Percent Meal Consumed - Breakfast: 75 Percent Meal Consumed - Lunch: 25 Percent Meal Consumed - Dinner: 80 Subjective Subjective Patient was seen & assessed and interval progress reviewed with nursing and social work. She had a good day yesterday, reports enjoying watching a movie with peers. She requested her [facility] medication early yesterday as anxiety tends to be worse in the evenings. This is a long standing pattern that began while she was in high school. Denied medication side effects. BP is within normal range. Denied suicidal thoughts. Slept through the night. Physical Exam Psychiatric Orientation: alert and oriented x 3 Apperance: appropriately dressed and appropriately groomed Eye Contact: good eye contact Motor Behavior: no abnormal motor movements Speech: normal rate/rhythm/volume of speech Affect: + anxious affect and mood congruent with affect Mood: + anxious mood Thought Process: goal directed thought process Thought Content: reality based without delusions Suicidal Thoughts: denies suicidal thoughts, denies suicidal plan (none for hospital) and denies suicidal intent Homicidal Thoughts: denies homicidal thoughts Hallucinations: no auditory hallucinations and no visual hallucinations Cognition: recent memory grossly intact, remote memory grossly intact, attention grossly intact and language grossly intact Estimated Intelligence: consistent with education level Insight: + fair insight Judgment: + fair judgement Vital Signs (Past 24 Hours) Last Vital Signs Temp 36.7 C 05/28/24 06:28 Pulse 66 05/28/24 06:28 Resp 16 05/28/24 06:28 BP 105/72 05/28/24 06:28 Pulse Ox 99 05/25/24 06:00 O2 Del Method Room Air 05/25/24 06:00 Results & Data ([facility]) Current Inpatient Medications Current Inpatient Medications: Current Inpatient Medications Acetaminophen (Acetaminophen 325 Mg Tab) 650 mg PO Q4H PRN PRN Reason: Headache or Minor Fever Stop: 06/23/24 17:50 Last Admin: 05/24/24 22:01 Dose: 650 mg Al Hydrox/Mg Hydrox/Simethicone (Aluminum/Magnesium Susp 30 Ml Udc) 30 ml PO Q4H PRN PRN Reason: GI Upset Stop: 06/23/24 17:50 Bismuth Subsalicylate (Bismuth Subsalicylate 262 Mg Chew) 2 tab PO Q30M PRN PRN Reason: Loose Stool/Diarrhea Stop: 06/23/24 17:50 Clonidine HCl (Clonidine Hcl 0.1 Mg Tab) 0.1 mg PO HS IRASEMA Stop: 06/25/24 21:59 Last Admin: 05/27/24 20:49 Dose: 0.1 mg Clonidine HCl (Clonidine Hcl 0.1 Mg Tab) 0.05 mg PO PM IRASEMA Stop: 06/27/24 20:59 Hydroxyzine HCl (Hydroxyzine Hcl 25 Mg Tab) 50 mg PO HSZ PRN PRN Reason: Insomnia Stop: 06/23/24 17:50 Last Admin: 05/26/24 01:25 Dose: 50 mg Hydroxyzine HCl (Hydroxyzine Hcl 25 Mg Tab) 25 mg PO Q4H PRN PRN Reason: Anxiety Stop: 06/23/24 17:50 Last Admin: 05/27/24 19:44 Dose: 25 mg Magnesium Hydroxide (Magnesium Hydroxide Susp 30 Ml Udc) 30 ml PO DAILY PRN PRN Reason: Constipation Stop: 06/23/24 17:50 Sertraline HCl (Sertraline Hcl 50 Mg Tablet) 50 mg PO QAM IRASEMA Stop: 06/26/24 08:59 Last Admin: 05/28/24 09:12 Dose: 50 mg Sodium Chloride (Sodium Chloride 0.65% Na Soln 45 Ml ([place])) 1 - 2 sprays NA PRN PRN PRN Reason: Nasal Dryness/Congestion Stop: 06/23/24 17:50 Mental Health & Subst Abuse Tx Psychiatrist Name of Psychiatrist: [facility] Date Of Appointment With Psychiatric Provider: 05/30/2024 Time of Appointment with Psychiatrist: 5:00pm Therapist Name of Therapist: Kobe Gill Fundraising Coordinator Name of Fundraising Coordinator: none Post Discharge Appointments Primary Care Physician Name Of Family Doctor/PCP: RYAN
--- NOTE | 2024-05-28 11:59 | Psychiatric Progress Note ---
Date of Service May 28, 2024 Impression / Recommendations Impression DAVID VORA is a 19-year-old woman 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 She screened positive for BPD on this admission. Diagnostically consistent with major depressive disorder, generalized anxiety disorder with panic attacks, sleep onset insomnia and likely component of BPD. A: Reports significant improvement in mood but persistence of anxiety, which is part of a long standing pattern dating back to high school. No clear precipitants. Denied medication side effects, SI at this time. Will likely benefit from outpatient treatment of BPD. Overall, I spent a total of 25 minutes on this case including meeting with the patient, reviewing the chart, nursing report, multidisciplinary team meeting, orders, and documentation. (1) Borderline personality disorder in adult: (2) Generalized anxiety disorder with panic attacks: (3) MDD (major depressive disorder), recurrent episode, severe: Plan 05/28/24: Continue Zoloft 50mg daily, Clonidine 0.1mg qhs. Add Clonidine 0.05mg q 4pm scheduled for evening anxiety. Estimate discharge 05/30/24. Inventory Assets Strengths: supportive relationships, willing to get treatment Needs: safety and stabilization, medication adjustment, additional coping skills, increased outpatient services Suicide Risk Level Suicide Risk Level: Moderate (q15 min suicide checks) (depression with SI with plan prior to admission, feels safe in the hospital and feels able to ask for support) Risk Factors Assessment Male: No : Yes Do You Have Access To A Gun?: No Health Problems: No Mental Health Diagnoses: Yes Substance Use Disorders: No Previous Attempt: Yes Family History of Suicide: No Previous Psychiatric Hospitalization: No Hopelessness: Yes Protective Factors Assessment 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 Chief Complaint "[]". Review of Systems Sleep Information Total Hours of Sleep: 6.5 Meal Information Percent Meal Consumed - Breakfast: 75 Percent Meal Consumed - Lunch: 25 Percent Meal Consumed - Dinner: 80 Subjective Subjective Patient was seen & assessed and interval progress reviewed with nursing and social work. Slept well, reports significantly improved mood. She participates in unit activities and appears to engage well with peers. Denied any further SI or desire to self-harm. She requested her [facility] meds early yesterday as anxiety began to build late afternoon. This did help alleviate those symptoms so that she was able to enjoy evening activities. She requested to push discharge out by one day. Physical Exam Psychiatric A+Ox3, euthymic affect Orientation: alert and oriented x 3 Eye Contact: good eye contact Motor Behavior: steady gait and station and no abnormal motor movements Speech: normal rate/rhythm/volume of speech Affect: + anxious affect and mood congruent with affect Mood: + anxious mood Thought Process: goal directed thought process, linear/logical thought process and clear/coherent thought process Thought Content: + preoccupation Suicidal Thoughts: denies suicidal thoughts, denies suicidal plan and denies suicidal intent Homicidal Thoughts: denies homicidal thoughts, denies homicidal plan and denies homicidal intent Denied any Cognition: recent memory grossly intact, remote memory grossly intact, attention grossly intact and language grossly intact Estimated Intelligence: average estimated intelligence and consistent with education level Insight: + fair insight Judgment: + fair judgement Vital Signs (Past 24 Hours) Last Vital Signs Temp 36.7 C 05/28/24 06:28 Pulse 66 05/28/24 06:28 Resp 16 05/28/24 06:28 BP 105/72 05/28/24 06:28 Pulse Ox 99 05/25/24 06:00 O2 Del Method Room Air 05/25/24 06:00 Results & Data ([facility]) Current Inpatient Medications Current Inpatient Medications: Current Inpatient Medications Acetaminophen (Acetaminophen 325 Mg Tab) 650 mg PO Q4H PRN PRN Reason: Headache or Minor Fever Stop: 06/23/24 17:50 Last Admin: 05/24/24 22:01 Dose: 650 mg Al Hydrox/Mg Hydrox/Simethicone (Aluminum/Magnesium Susp 30 Ml Udc) 30 ml PO Q4H PRN PRN Reason: GI Upset Stop: 06/23/24 17:50 Bismuth Subsalicylate (Bismuth Subsalicylate 262 Mg Chew) 2 tab PO Q30M PRN PRN Reason: Loose Stool/Diarrhea Stop: 06/23/24 17:50 Clonidine HCl (Clonidine Hcl 0.1 Mg Tab) 0.1 mg PO HS IRASEMA Stop: 06/25/24 21:59 Last Admin: 05/27/24 20:49 Dose: 0.1 mg Hydroxyzine HCl (Hydroxyzine Hcl 25 Mg Tab) 50 mg PO HSZ PRN PRN Reason: Insomnia Stop: 06/23/24 17:50 Last Admin: 05/26/24 01:25 Dose: 50 mg Hydroxyzine HCl (Hydroxyzine Hcl 25 Mg Tab) 25 mg PO Q4H PRN PRN Reason: Anxiety Stop: 06/23/24 17:50 Last Admin: 05/27/24 19:44 Dose: 25 mg Magnesium Hydroxide (Magnesium Hydroxide Susp 30 Ml Udc) 30 ml PO DAILY PRN PRN Reason: Constipation Stop: 06/23/24 17:50 Sertraline HCl (Sertraline Hcl 50 Mg Tablet) 50 mg PO QAM IRASEMA Stop: 06/26/24 08:59 Last Admin: 05/27/24 09:31 Dose: 50 mg Sodium Chloride (Sodium Chloride 0.65% Na Soln 45 Ml ([place])) 1 - 2 sprays NA PRN PRN PRN Reason: Nasal Dryness/Congestion Stop: 06/23/24 17:50 Mental Health & Subst Abuse Tx Psychiatrist Name of Psychiatrist: Kobe Gill Date Of Appointment With Psychiatric Provider: 05/30/2024 Time of Appointment with Psychiatrist: 5:00pm Therapist Name of Therapist: Kobe Gill Podiatrist Name of Podiatrist: none Post Discharge Appointments Primary Care Physician Name Of Family Doctor/PCP: Shane
[2024-05-28 15:17] LABS: Marijuana Quant, GCMS Urine 1749 ng/mL (<5)
[2024-05-28] MEDS: cloNIDine HCL 0.1 MG TAB PO SCH (15:39)
--- NOTE | 2024-05-29 13:44 | Psychiatric Progress Note ---
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 She screened positive for BPD on this admission. Diagnostically consistent with major depressive disorder, generalized anxiety disorder with panic attacks, sleep onset insomnia and likely component of BPD. A: Reports significant improvement in mood and anxiety. She denied SI, medication side effects, at this time. Scheduled for discharge tomorrow. Overall, I spent a total of 25 minutes on this case including meeting with the patient, reviewing the chart, nursing report, multidisciplinary team meeting, orders, and documentation. (1) Borderline personality disorder in adult: (2) Generalized anxiety disorder with panic attacks: (3) MDD (major depressive disorder), recurrent episode, severe: Plan 05/29/24: Increase Zoloft to 100mg daily for anxiety and depression. Continue clonidine at current dose. Scheduled discharge after lunch tomorrow. 05/28/24: Continue Zoloft 50mg daily, Clonidine 0.1mg qhs. Add Clonidine 0.05mg q 4pm scheduled for evening anxiety. Estimate discharge 05/30/24. Inventory Assets Strengths: supportive relationships, willing to get treatment Needs: safety and stabilization, medication adjustment, additional coping skills, in creased outpatient services Suicide Risk Level Suicide Risk Level: Low (q15 min observation checks) (depression with SI with plan prior to admission, feels safe in the hospital and feels able to ask for support) Risk Factors Assessment Male: No : Yes Do You Have Access To A Gun?: No Health Problems: No Mental Health Diagnoses: Yes Substance Use Disorders: No Previous Attempt: Yes Family History of Suicide: No Previous Psychiatric Hospitalization: No Hopelessness: Yes Protective Factors Assessment 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 Chief Complaint "I am better". Review of Systems Sleep Information Total Hours of Sleep: 6 Meal Information Percent Meal Consumed - Breakfast: 10 Percent Meal Consumed - Lunch: 75 Percent Meal Consumed - Dinner: 15 Subjective Subjective Patient was seen & assessed and interval progress reviewed with treatment team. Her mood is significantly improved. Sleep, energy are improved. She denied SI intent or plan. Anxiety is markedly reduced "this is the most quiet it has been in my head since jose high". No side effects from meds reported. BP noted to be 99/63 but she denied orthostatic symptoms. She consented to an increase in zoloft dose. She is future oriented and feels ready for discharge. Physical Exam Psychiatric A+Ox3, euthymic affect Orientation: alert and oriented x 3 Apperance: appropriately dressed and appropriately groomed Eye Contact: good eye contact Motor Behavior: steady gait and station and no abnormal motor movements Speech: normal rate/rhythm/volume of speech Affect: + anxious affect and mood congruent with affect Thought Process: goal directed thought process, linear/logical thought process and clear/coherent thought process Thought Content: reality based without delusions Suicidal Thoughts: denies suicidal thoughts, denies suicidal plan and denies suicidal intent Homicidal Thoughts: denies homicidal thoughts, denies homicidal plan and denies homicidal intent Hallucinations: no auditory hallucinations and no visual hallucinations Cognition: recent memory grossly intact, remote memory grossly intact, attention grossly intact and language grossly intact Estimated Intelligence: average estimated intelligence and consistent with education level Insight: + fair insight Judgment: + fair judgement Vital Signs (Past 24 Hours) Last Vital Signs Temp 36.9 C 05/29/24 06:34 Pulse 74 05/29/24 06:35 Resp 16 05/29/24 06:34 BP 99/63 L 05/29/24 06:35 Pulse Ox 99 05/25/24 06:00 O2 Del Method Room Air 05/25/24 06:00 Results & Data ([facility]) Laboratory Results Laboratory Results - last 24 hr 05/24/24 15:25 U Marijuana THC Carboxy 1749 H Drug Screen Comment SEE NOTE Current Inpatient Medications Current Inpatient Medications: Current Inpatient Medications Acetaminophen (Acetaminophen 325 Mg Tab) 650 mg PO Q4H PRN PRN Reason: Headache or Minor Fever Stop: 06/23/24 17:50 Last Admin: 05/24/24 22:01 Dose: 650 mg Al Hydrox/Mg Hydrox/Simethicone (Aluminum/Magnesium Susp 30 Ml Udc) 30 ml PO Q4H PRN PRN Reason: GI Upset Stop: 06/23/24 17:50 Bismuth Subsalicylate (Bismuth Subsalicylate 262 Mg Chew) 2 tab PO Q30M PRN PRN Reason: Loose Stool/Diarrhea Stop: 06/23/24 17:50 Clonidine HCl (Clonidine Hcl 0.1 Mg Tab) 0.1 mg PO HS IRASEMA Stop: 06/25/24 21:59 Last Admin: 05/28/24 21:11 Dose: 0.1 mg Clonidine HCl (Clonidine Hcl 0.1 Mg Tab) 0.05 mg PO DAILY@1600 IRASEMA Stop: 06/27/24 15:59 Last Admin: 05/28/24 15:39 Dose: 0.05 mg Hydroxyzine HCl (Hydroxyzine Hcl 25 Mg Tab) 50 mg PO HSZ PRN PRN Reason: Insomnia Stop: 06/23/24 17:50 Last Admin: 05/26/24 01:25 Dose: 50 mg Hydroxyzine HCl (Hydroxyzine Hcl 25 Mg Tab) 25 mg PO Q4H PRN PRN Reason: Anxiety Stop: 06/23/24 17:50 Last Admin: 05/27/24 19:44 Dose: 25 mg Magnesium Hydroxide (Magnesium Hydroxide Susp 30 Ml Udc) 30 ml PO DAILY PRN PRN Reason: Constipation Stop: 06/23/24 17:50 Sertraline HCl (Sertraline Hcl 50 Mg Tablet) 50 mg PO QAM IRASEMA Stop: 06/26/24 08:59 Last Admin: 05/29/24 09:05 Dose: 50 mg Sodium Chloride (Sodium Chloride 0.65% Na Soln 45 Ml ([place])) 1 - 2 sprays NA PRN PRN PRN Reason: Nasal Dryness/Congestion Stop: 06/23/24 17:50 Mental Health & Subst Abuse Tx Psychiatrist Name of Psychiatrist: Kobe Gill Date Of Appointment With Psychiatric Provider: 05/30/2024 Time of Appointment with Psychiatrist: 5:00pm Therapist Name of Therapist: Kobe Gill Instructional Supervisor Name of Instructional Supervisor: none Post Discharge Appointments Primary Care Physician Name Of Family Doctor/PCP: Shane
[2024-05-30] MEDS: SERTRALINE HCL 100 MG TABLET PO SCH (08:44)
--- NOTE | 2024-05-30 11:20 | Discharge Summary ---
Date of Service May 30, 2024 History of Present Illness She presents for psychiatric admission for worsening depression and SI with plan of cutting herself. She cannot identify any recent stressors, she notes this depressive episode started at the end of March and "I should have been so happy I love the holidays and had no stress but instead I was so sad". She notes "I can't feel happiness and I don't care about things". She's tearful discussing her distress from the depression and anxiety. Recent self-harm via cutting a few weeks ago. Her mother, a nurse, does not understand mental health, which has been a source of frustration for Khadijah. She endorses depressive symptoms since late March including tearfulness, anhedonia (never wants to watch movies or do anything she typically enjoys), decreased motivation, social isolation, helplessness, hopelessness, decreased energy, decreased appetite and also restricts, and difficulty falling asleep. SI has been occurring for a long time at a baseline level but it intensified significantly over recent days to the point she worried she would act on the thoughts and almost the day prior to admission. Her depression, anxiety and SI seems to worsen at night with racing internal anxious thoughts. She also endorses symptoms of anxiety including generalized worries, nausea, shakiness, easily overwhelmed, racing thoughts and panic attacks (has had 4-5 this month, typically occurs at night). She recently quit smoking marijuana, which she had been using to manage her symptoms, including appetite and anxiety. She is not currently prescribed any psychiatric medications. Psychiatric ROS notable for no current nor history of symptoms of abhilash, psychosis, PTSD, OCD. She describes a pattern of some restrictive eating since about 6th grade-often worsens with stressors, has been eating one meal a day and some snacks recently. Self-harms via cutting. Physical Exam Psychiatric A+Ox3, euthymic affect Orientation: alert and oriented x 3 Apperance: appropriately dressed and appropriately groomed Eye Contact: good eye contact Motor Behavior: steady gait and station and no abnormal motor movements Speech: normal rate/rhythm/volume of speech Affect: mood congruent with affect Mood: + anxious mood Thought Process: goal directed thought process, linear/logical thought process and clear/coherent thought process Thought Content: reality based without delusions Suicidal Thoughts: denies suicidal thoughts, denies suicidal plan and denies suicidal intent Homicidal Thoughts: denies homicidal thoughts, denies homicidal plan and denies homicidal intent Hallucinations: no auditory hallucinations and no visual hallucinations Cognition: recent memory grossly intact, remote memory grossly intact, attention grossly intact and language grossly intact Estimated Intelligence: average estimated intelligence and consistent with education level Insight: good insight Judgment: + fair judgement Vital Signs (Past 24 Hours) Last Vital Signs Temp 36.7 C 05/30/24 08:04 Pulse 72 05/30/24 08:04 Resp 16 05/30/24 08:04 BP 106/69 05/30/24 08:04 Pulse Ox 97 05/30/24 08:04 O2 Del Method Room Air 05/29/24 20:33 Principal Diagnosis Major Depressive Disorder, Recurrent, Severe without Psychosis. QIANA Borderline PD. Psychiatric Data See daily stay summary. In short, safety was maintained and the patient was cooperative with care. Medication changes included and they tolerated this well. A family session was and safety plan was completed prior to discharge. Day of Discharge Assessment Today the patient voices readiness for discharge. They note improvement in mood and deny thoughts to harm self or others. Thoughts remain organized and they are improved from admission. There is no evidence of psychosis. No medication side effects. No increase in SI. They agree to take mediations as prescribed and keep follow-up appointments. They are stable for discharge to outpatient level of care. Transition of Care Transition Of Care Record: was reviewed with the patient Advance Directives Advance Directives Information Provided: Yes Advance Directives: No Mental Health Advance Directive: No Advance Directives on File: No Living Will: No Power of Line Maintenance Technician: No Advance Directives Reason:: Declines as Mental Health Visit. 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) Stable Relationships: Yes Supportive Family: Yes Total Time Total Time Spent: Greater Than 30 Minutes Discharge Data Lab Results 05/24/24 05/24/24 15:25 15:38 WBC 7.33 RBC 4.69 Hgb 14.6 Hct 42.0 MCV 89.6 MCH 31.1 MCHC 34.8 RDW Std Deviation 41.4 RDW Coeff of Jian 12.6 Plt Count 261 MPV 10.4 Immature Gran % (Auto) 0.4 Neut % (Auto) 79.7 Lymph % (Auto) 15.3 [place] % (Auto) 4.1 Eos % (Auto) 0.0 Baso % (Auto) 0.5 Neut # (Auto) 5.84 Lymph # (Auto) 1.12 L [place] # (Auto) 0.30 Eos # (Auto) 0.00 Baso # (Auto) 0.04 Immature Gran # (Auto) 0.03 Sodium 139 Potassium 3.7 Chloride 105 Carbon Dioxide 24 Anion Gap 10 BUN 12 Creatinine 0.75 Est Cr Clr Drug Dosing 102.5 eGFR 116.09 BUN/Creatinine Ratio 16.0 Glucose 105 H Calcium 10.6 H Total Bilirubin 0.9 AST 18 ALT 16 Alkaline Phosphatase 82 Total Protein 8.3 Albumin 5.1 H Globulin 3.2 Albumin/Globulin Ratio 1.6 TSH 0.703 Urine Color Dark Yellow Urine Appearance Cloudy A Urine pH 6.0 Ur Specific [place] 1.032 H Urine Protein 1+ H Urine Glucose (UA) Negative Urine Ketones 3+ H Urine Blood Trace H Urine Nitrite Positive A Urine Bilirubin 1+ H Urine Urobilinogen Negative Ur Leukocyte Esterase Trace H Urine WBC (Auto) 0-5 Urine RBC (Auto) 3-5 H U Hyaline Cast (Auto) 0-2 U Epithel Cells (Auto) 6-10 H Urine Bacteria (Auto) 4+ H Urine Test Negative Salicylates < 3.0 L Urine Opiates Screen Neg Ur Methadone, Qual Neg Urine Fentanyl Screen Neg Acetaminophen < 3 L Urine Barbiturates Neg Ur Phencyclidine (PCP) Neg U Amphetamin/Meth Scrn Neg MDMA (Ecstasy) Screen Neg U Benzodiazepines Scrn Neg Ur Cocaine Metabolite Neg U Marijuana (THC) Screen Pos H U Marijuana THC Carboxy 1749 H Drug Screen Comment SEE NOTE Ethyl Alcohol mg/dL < 10.0 SARS-CoV-2, RNA, NAAT NEGATIVE Hospital Course (1) Borderline personality disorder in adult: (2) Generalized anxiety disorder with panic attacks: (3) MDD (major depressive disorder), recurrent episode, severe: Plan 05/30/24 Discharge today after lunchtime. Recommended calling [phone] if in Crisis. Keep outpatient appointment. Monitor for orthostatic changes (BP today 106/69). 05/29/24: Increase Zoloft to 100mg daily for anxiety and depression. Continue clonidine at current dose. Scheduled discharge after lunch tomorrow. 05/28/24: Continue Zoloft 50mg daily, Clonidine 0.1mg qhs. Add Clonidine 0.05mg q 4pm scheduled for evening anxiety. Estimate discharge 05/30/24. Mental Health & Subst Abuse Tx Psychiatrist Name of Psychiatrist: Kobe Gill Date Of Appointment With Psychiatric Provider: 05/30/2024 Time of Appointment with Psychiatrist: 5:00pm Therapist Name of Therapist: Kobe Gill Quality Liaison Name of Quality Liaison: none Post Discharge Appointments Primary Care Physician Name Of Family Doctor/PCP: RYAN Other #1: Name of Aftercare Appointment: [facility]acy Date of Aftercare Appointment: 06/01/24 Time of Aftercare Appointment: 11am Discharge Plan Discharge Items Patient Disposition: Home - Self-Care Reason For Visit: UNSPECIFIED DEPRESSIVE DISORDER Discharge Diagnosis: Major Depressive Disorder, Severe, without Psychotic features. Generalized Anxiety Disorder. Borderline Personality Disorder. History of Cannabis Use. Condition on Discharge: Good Activity: Resume your previous activity Lifting: Gradually increase as tolerated Bathing: No limitations Sexual Activity: When tolerated Exercise/Sports: As tolerated Driving/Machine Use: No limitations Non-emergency contact: Primary Care Provider, Psychiatrist and Therapist Call non-emergency contact if: you have any medication questions and your symptoms worsen Follow-up/Referrals: [facility] [Primary Care Provider] - Diet: Regular Addtl Attending Provider Instructions: Continue medication. Keep outpatient follow up appointments. Monitor for treatment-emergent increase in suicidal ideation from sertraline. Contact [phone] if in crisis. Pending Studies at Discharge: No Stand-Alone [facility]School [facility], Smoking Cessation Medications and DC Order Prescriptions: New clonidine HCl 0.1 mg Tablet 0.1 mg PO HS 15 Days Qty: 15 1RF clonidine HCl 0.1 mg Tablet 0.05 mg PO DAILY@1600 15 Days Qty: 15 1RF sertraline 100 mg Tablet 100 mg PO QAM 30 Days Qty: 30 0RF hydroxyzine HCl 25 mg Tablet 25 mg PO Q12 PRN (Reason: anxiety) 15 Days Qty: 30 1RF Discharge Orders: Discharge Order (Routine); Ordered 05/30/24 Ordered By: Nadira Gutierrez Admission Data Admit Date/Time: 05/24/24 18:22 Attending Provider: Shira Cardoza Admit Provider: Shira Cardoza Primary Care Provider: [place],[facility] Other Interventions: Discharge Summary Assessment (RN) Last Done: 05/30/24 08:04 PSY Interdisciplinary Discharge Planning Last Done: 05/29/24 11:53 [place] [address] D/C day mgmt > 30 min Patient Type Established History Expanded Problem Focused Exam Expanded Problem Focused Medical Decision Making Low Complexity Diagnoses Borderline personality disorder in adult F60.3 Generalized anxiety disorder with panic attacks F41.1; F41.0 MDD (major depressive disorder), recurrent episode, severe F33.2 Time Spent (min) 30
== END 2024-05-30 15:23 | disposition home or self-care (01) | DRG 885 ==
LOC: ED 14:45 → 3S 18:21

== ENCOUNTER 2025-01-25 09:50 | Inpatient (IN) ==
[2025-01-25 10:38] LABS: Hematocrit (blood only) 41.7 % (37.0-47.0); Hemoglobin 14.3 g/dl (12.0-16.0); Immature Granulocytes # (auto) 0.05 K/uL (0.01-0.20); Immature Granulocytes % (auto) 0.4 %; Mean Corpuscular Hemoglobin 31.2 pg (25.0-34.0); Mean Corpuscular Volume 90.8 fL (80.0-100.0); Platelet Count 357 K/uL (130-400); RDW Standard Deviation 41.4 fL (36.4-46.3); Red Blood Count 4.59 M/uL (4.20-5.40); White Blood Count 12.09 K/ul (4.8-10.8)
--- NOTE | 2025-01-25 10:48 | Emergency Department Note ---
History of Present Illness General Chief complaint: Mental Health Evaluation Stated complaint: BEHAVIORAL HEALTH Time Seen by Provider: 01/25/25 10:06 Source: patient Mode of arrival: ambulatory Limitations: no limitations History of Present Illness Patient is a 19-year-old female with history of depression, generalized anxiety, BPD who presents for worsening depressive symptoms and SI. She was recommended by her therapist after a telehealth visit yesterday to come into the ER as she is not currently established with a psychiatrist and had a "breakdown yesterday". She did have some suicidal thoughts yesterday that have since resolved. She did not have a plan to hurt herself. No HI reported. She does take Abilify as well as sertraline and hydroxyzine as needed. She feels like she needs a medication adjustment as her depressive symptoms are getting worse. She denies any drug or alcohol use. She does smoke cigarettes. No access to weapons. She lives with a roommate currently and is a student at [employer]. Home Medications Medication Instructions Recorded Confirmed Type clonidine HCl 0.1 mg tablet 0.05 mg (1/2 x 0.1 mg) PO 05/30/24 01/25/25 Rx DAILY@1600 15 days #15 tabs clonidine HCl 0.1 mg tablet 0.1 mg PO HS 15 days #15 tabs 05/30/24 01/25/25 Rx aripiprazole 5 mg tablet 5 mg PO DAILY 01/25/25 01/25/25 History hydroxyzine HCl 50 mg tablet 50 mg PO BID PRN Anxiety 01/25/25 01/25/25 History sertraline 100 mg tablet 100 mg PO DAILY 01/25/25 01/25/25 History Allergies Allergy/AdvReac Type Severity Reaction Status Date / Time No Known Allergies Allergy Unverified 01/25/25 10:17 Past Med/Surg History Problem List (Updated 01/25/25 @ 11:04 by Randy Estrada MD) UTI (urinary tract infection) (Acute) Borderline personality disorder in adult Generalized anxiety disorder with panic attacks MDD (major depressive disorder), recurrent episode, severe Depression with suicidal ideation (Acute) Medical History (Updated 01/25/25 @ 11:04 by Randy Estrada MD) Cystitis Asthma Social History Smoking Status: Current every day smoker Tobacco Type: Cigarettes Preferred Language: Burkinan Communication Ability: Effective Digital Sales Planner Required: No Beliefs That Will Affect Care: None Feels Safe at Home: Yes Gender Identity: Female Assistive Devices: Glasses Review of Systems Review of systems negative outside of positive findings mentioned in HPI. Physical Exam Vital Signs Vital Signs - 24 hr 01/25/25 09:57 Temperature 36.4 C L Temperature Source Temporal Artery Scan Pulse Rate 110 H Respiratory Rate 20 Respiratory Effort / Characteristics Non-Labored Respiratory Depth Normal Blood Pressure 124/87 Blood Pressure Mean 99 Pulse Oximetry 96 Oxygen Delivery Method Room Air Sepsis Recent Fever Within 48 Hours No Sepsis New/Unexplained Change in Mental Status No Sepsis Action Taken by Nursing No Action Required See below. Constitutional WD/WN, vitals as above Respiratory normal respiratory effort, lungs clear to auscultation Cardiovascular RRR, no murmur, no edema Psychiatric A+Ox3, euthymic affect Orientation: alert and oriented x 3 Apperance: appropriately groomed and appeared stated age Eye Contact: good eye contact Speech: speech normal rate, rhythm, volume Affect: + depressed affect Mood: + depressed mood Thought Process: linear, logical thought process Thought Content: no preoccupation Suicidal Thoughts: denies suicidal plan Homicidal Thoughts: denies suicidal plan Hallucinations: no auditory hallucinations and no visual hallucinations Cognition: recent memory grossly intact Insight: good insight Judgment: good judgement Medical Decision Making Differential Diagnosis DDx includes but no limited to: depression, SI, anxiety Laboratory Data Attestation: I reviewed the patient's lab results. 01/25/25 10:12 01/25/25 10:12 Lab Results 01/25/25 01/25/25 01/25/25 Range/Units 10:07 10:10 10:12 WBC 12.09 H (4.8-10.8) K/ul RBC 4.59 (4.20-5.40) M/uL Hgb 14.3 (12.0-16.0) g/dl Hct 41.7 (37.0-47.0) % MCV 90.8 (80.0-100.0) fL MCH 31.2 (25.0-34.0) pg MCHC 34.3 (32.0-36.0) g/dL RDW Std Deviation 41.4 (36.4-46.3) fL RDW Coeff of Jian 12.6 (11.5-14.5) % Plt Count 357 (130-400) K/uL MPV 9.4 (9.4-12.4) fL Immature Gran % (Auto) 0.4 % Neut % (Auto) 77.8 % Lymph % (Auto) 16.3 % [place] % (Auto) 4.0 % Eos % (Auto) 0.8 % Baso % (Auto) 0.7 % Neut # (Auto) 9.40 H (1.40-6.50) K/uL Lymph # (Auto) 1.97 (1.20-3.40) K/uL [place] # (Auto) 0.48 (0.11-0.59) K/uL Eos # (Auto) 0.10 (0.00-0.50) K/uL Baso # (Auto) 0.09 (0.00-0.20) K/uL Immature Gran # (Auto) 0.05 (0.01-0.20) K/uL Sodium 138 (136-145) mmol/L Potassium 3.9 (3.5-5.1) mmol/L Chloride 104 (98-107) mmol/L Carbon Dioxide 25 (21-32) mmol/L Anion Gap 9 (3-11) BUN 12 (6-23) mg/dl Creatinine 0.54 L (0.6-1.2) mg/dl Est Cr Clr Drug Dosing 142.3 ml/min eGFR 134.25 BUN/Creatinine Ratio 22.2 H (10-20) Glucose 106 H (70-99(Fasting)) mg/dl Calcium 10.0 (8.6-10.3) mg/dl Total Bilirubin 0.5 (0.2-1.0) mg/dl AST 19 (13-39) U/L ALT 15 (7-52) U/L Alkaline Phosphatase 82 (34-104) U/L Total Protein 8.0 (6.0-8.3) gm/dl Albumin 5.0 (3.4-5.0) gm/dl Globulin 3.0 (2.5-4.0) gm/dl Albumin/Globulin Ratio 1.7 (0.9-2) Urine Color Yellow Urine Appearance Cloudy A (Clear) Urine pH 6.0 (4.5-7.5) Ur Specific [place] 1.020 (1.000-1.030) Urine Protein Negative (Negative) Urine Glucose (UA) Negative (Negative) Urine Ketones Negative (Negative) Urine Blood Negative (Negative) Urine Nitrite Positive A (Negative) Urine Bilirubin Negative (Negative) Urine Urobilinogen Negative (Negative) Ur Leukocyte Esterase 3+ H (Negative) Urine WBC (Auto) 6-10 H (0-5) /hpf Urine RBC (Auto) 0-2 (0-2) /hpf U Hyaline Cast (Auto) 0-2 (0-2) /lpf U Epithel Cells (Auto) 11-20 H (0-2) /hpf Urine Bacteria (Auto) 4+ H (None Seen) POC Ur Test NEG (NEG) Urine Comment Salicylates < 3.0 L (3.0-30) mg/dl Acetaminophen < 3 L (10-30) ug/ml Ethyl Alcohol mg/dL < 10.0 (<10.0) mg/dl SARS-CoV-2, RNA, NAAT NEGATIVE (NEGATIVE) MDM Narrative Patient is a 19-year-old female presents with increased depressive symptoms and intermittent SI. No endorse any SI or HI at this time. No evidence of acute psychosis. Lab work was ordered to medically clear for psychiatric evaluation. UA consistent with possible underlying infection. Will start on oral antibiotics while here at the hospital. No indication for IV abx or concern for sepsis. Patient is medically cleared for psychiatric admission. No indication for involuntary commitment. Impression & Plan Depression with suicidal ideation, UTI (urinary tract infection) Discharge Plan Visit Data Chief Complaint: Mental Health Evaluation Stated Complaint: BEHAVIORAL HEALTH ED Provider: Randy Estrada Discharge Problem: Depression with suicidal ideation, UTI (urinary tract infection) Patient Disposition: Transfer Behavioral Health Fac Condition: Good Forms Stand Alone Forms: My [facility], Suicide Prevention Resources Prescriptions Prescriptions: No Action clonidine HCl 0.1 mg Tablet 0.1 mg PO HS 15 Days Qty: 15 1RF clonidine HCl 0.1 mg Tablet 0.05 mg PO DAILY@1600 15 Days Qty: 15 1RF sertraline 100 mg tablet 100 mg PO DAILY hydroxyzine HCl 50 mg tablet 50 mg PO BID PRN (Reason: Anxiety) aripiprazole 5 mg tablet 5 mg PO DAILY Referrals Referrals: [facility] [Primary Care Provider] -
[2025-01-25 10:55] LABS: Acetaminophen < 3 ug/ml (10-30); Salicylate < 3.0 mg/dl (3.0-30)
[2025-01-25 10:56] LABS: Appearance Urine Cloudy (Clear); Bacteria Urine Automated 4+ (None Seen); Cast Urine Automated 0-2 /lpf (0-2); Glucose Urine UA Negative (Negative); RBC Urine Automated 0-2 /hpf (0-2)
[2025-01-25 10:56] LABS: Alanine Aminotransferase 15.0 U/L (7-52); Albumin Globulin Ratio 1.7 (0.9-2); Albumin Level 5.0 gm/dl (3.4-5.0); Alkaline Phosphatase 82.0 U/L (34-104); Anion Gap 9.0 (3-11); Bilirubin,Total 0.5 mg/dl (0.2-1.0); Blood Urea Nitrogen 12.0 mg/dl (6-23); Calcium 10.0 mg/dl (8.6-10.3); Carbon Dioxide 25.0 mmol/L (21-32); Chloride 104.0 mmol/L (98-107); Creatinine Clr Calc Pharmacy 142.3 ml/min; Globulin 3.0 gm/dl (2.5-4.0); Glucose 106.0 mg/dl (70-99(Fasting)); Potassium 3.9 mmol/L (3.5-5.1); Sodium 138.0 mmol/L (136-145); Total Protein 8.0 gm/dl (6.0-8.3)
[2025-01-25 11:10] LABS: Thyroid Stimulating Hormone 0.877 uIu/ml (0.300-4.500)
[2025-01-25 11:31] LABS: Amphetamines+Metham, Urine Neg (Neg); MDMA (Ecstacy), Urine Neg (Neg); Marijuana, Urine Pos (Neg)
[2025-01-25] MEDS ORDERED: BISMUTH SUBSALICYLATE 262 MG CHEW PO PRN (13:07)
[2025-01-25] MEDS ORDERED: SODIUM CHLORIDE 0.65% NA SOLN 45 ML (OCEAN) PRN (13:07)
[2025-01-25] MEDS ORDERED: ACETAMINOPHEN 325 MG TAB PO PRN (13:07)
[2025-01-25] MEDS ORDERED: MAGNESIUM HYDROXIDE SUSP 30 ML UDC PO PRN (13:07)
[2025-01-25] MEDS ORDERED: ALUMINUM/MAGNESIUM SUSP 30 ML UDC PO PRN (13:07)
[2025-01-25] MEDS: NICOTINE 7 MG/24 HR TDSY TD SCH (17:11)
[2025-01-25] MEDS: INFLUENZA VACC TS2025-26(6m+)/PF (IIV3) 0.5mL Syr IM ONE (17:14)
[2025-01-26] MEDS: ARIPiprazole 5 MG TAB PO SCH (08:56)
[2025-01-26] MEDS: SERTRALINE HCL 100 MG TABLET PO SCH (08:56)
[2025-01-26] MEDS: REMOVE NICODERM PATCH SCH (09:03)
[2025-01-26] MEDS: SERTRALINE HCL 100 MG TABLET PO ONE (10:24)
[2025-01-26] MEDS: lamoTRIgine 25 MG TAB PO SCH (12:47)
--- NOTE | 2025-01-26 13:43 | History & Physical ---
Date of Service January 26, 2025 Impression / Recommendations Impression DAVID VORA is a 19-year-old F who currently lives with roommate, has a history of BPD, QIANA, MDD, and was admitted on 01/25/25 13:07 on a 201 voluntary commitment for suicidal ideation. Concern for a bipolar 2 illness currently in a major depressive episode given timeline of mood symptoms and limited improvement on SSRI and antipsychotic combination and early age of onset of depression. BPD symptoms appear to be less prominent and well-controlled. Patient has history of emotional neglect. Concern for hypomanic episodes with increased promiscuity and impulsive spending. Plan to optimize aripiprazole for mood stabilization and initiate lamotrigine for bipolar depression; medication side effects and adverse effects discussed with patient and agreeable. Patient would benefit from connection to outpatient psychiatrist given complexity. Currently does not appear to be an imminent risk of harm to herself. Overall, I spent a total of 75 minutes with this case including review of chart records, nursing report, review of lab work, direct evaluation of the patient at bedside, counseling the patient, multidisciplinary team meeting, orders, and documentation in the electronic health record. (1) Bipolar 2 disorder, major depressive episode: (2) Borderline personality disorder in adult: (3) UTI (urinary tract infection): Plan 01/26/2025:The patient was admitted to the [facility]) on q15 min checks (behavioral with suicide precautions) for safety. The patient will participate in group, recreational, and milieu therapies and will be offered additional individual and family sessions as clinically appropriate. Continue home sertraline 200 mg daily Increase aripiprazole to 10 mg daily Start lamotrigine 25 mg daily Start hydroxyzine 50 mg at bedtime Labs: Hemoglobin A1c, fasting lipids, vitamin D, vitamin B12 Questionnaires: Mood disorder questionnaire Inventory Assets Strengths: independent, support seeking Needs: outpatient connection, medication management Suicide Risk Level Suicide Risk Level: Low (q15 min observation checks) Risk Factors Assessment Male: No : Yes Do You Have Access To A Gun?: No Health Problems: No Mental Health Diagnoses: Yes Substance Use Disorders: No Previous Attempt: No Family History of Suicide: No Previous Psychiatric Hospitalization: Yes Hopelessness: No Protective Factors Assessment Roman Catholic Beliefs: No : No Responsible for Young Children: No Employed: No Stable Relationships: Yes Supportive Family: Yes Good Rapport with Provider: Yes Absence of Any Risk Factors Above: No Psychiatric History Identifying Data DAVID VORA is a 19-year-old F who currently lives with roommate, has a history of BPD, QIANA, MDD, and was admitted on 01/25/25 13:07 on a 201 voluntary commitment for suicidal ideation. Chief Complaint "Depression becoming unmanageable" History of Present Illness Patient reports recent increase in suicidal thoughts secondary to financial stressors of being able to pay for school, rent, and her bills. Complains of no motivation, anhedonia, low energy, low poor concentration, increase in passive S I, increased worthlessness. Says this has been getting worse since mid December. Reports recent episode lasting 3 days where she had poor sleep but improved mood and energy and was engaging in more activities and doing things she normally does not do like hanging out with new friends. Says that this has occurred 2-3 times in the past 12 months and in the past she has been more promiscuous and spending money she does not have during these times. Reports depression for starting in the sixth grade. Denies distressing dreams or hypervigilance. Complains of difficulty maintaining sleep and that Vistaril was helpful. Has been using escalating doses of caffeine to cope with depression and has been restricting food for emotional control. Denies current SI. She reports since last hospitalization she has been adherent to her medications Zoloft 200 mg daily and Abilify 5 mg daily. Says that her anxiety is better however depression has not improved. Currently does not have a psychiatrist. Discontinued clonidine because her blood pressure got too low. Denies having a drug or alcohol problem. Recently started smoking cigarettes. Childhood history: Parents at 1 years of age and she regularly witnessed verbal arguments between them. Reports being more withdrawn as a kid and experienced emotional neglect and isolation. Denies physical or sexual abuse. Family psychiatric history: Father with alcohol abuse and depression and both paternal and maternal grandmother with depression. Past Psychiatric History Current Psychiatric Diagnosis: MDD, QIANA, BPD Do You Have Access To A Gun?: No History of Previous Suicide Attempt: Yes (5 years ago) Allergies Allergy/AdvReac Type Severity Reaction Status Date / Time No Known Allergies Allergy Unverified 01/25/25 10:17 Home Medications Medication Instructions Recorded Confirmed Type aripiprazole 5 mg tablet 5 mg PO DAILY 01/25/25 01/25/25 History hydroxyzine HCl 50 mg tablet 50 mg PO BID PRN Anxiety 01/25/25 01/25/25 History sertraline 100 mg tablet 200 mg PO DAILY 01/25/25 01/26/25 History Family History Family History of: Doesn't Know Alcohol History Hx of Alcohol Use Over the Past 12 Months: No AUDIT Total Score: 0 Smoking Use Have You Smoked or Used Tobacco Products in the Last 30 Days: Yes tobacco type: cigarettes Smoking Status: Current every day smoker Smoking packs per day: 5 Substance History Hx of Prescription Med Misuse Over the Past 12 Months: No Hx of Over the Counter Med Misuse Over the Past 12 Months: No Hx of Inhalent Misuse Over the Past 12 Months: No Hx of Organic Substance Use Over the Past 12 Months: Yes (marijuana use daily) Hx of Illegal Substances/Street Drug Use Over Past 12 Months: No Problems as a Result of Past Substance Use: None Identified Personal History Living Arrangements: Apartment Highest Grade Completed: Some College Marital Status: Single Number Of Children: 0 Beliefs That Will Affect Care: None Hx Legal Problems: No Hx Traumatic Life Events: Yes (parents at young age, a lot of instability when at her fathers) Patient History Medical History (Updated 01/26/25 @ 13:43 by William Ferrara MD) Cystitis Asthma Social History Smoking Status: Current every day smoker Tobacco Type: Cigarettes Preferred Language: Azeri Communication Ability: Effective Ballistic Technician Required: No Beliefs That Will Affect Care: None Feels Safe at Home: Yes Gender Identity: Female Assistive Devices: Glasses Physical Exam 2 Mental Examination: Appearance: Unkempt Eye Contact: Maintains Eye Contact Motor Behavior: Unremarkable Speech: Normal Mood: Calm Affect: Calm Thought Process: Intact and Linear Thought Content: Intact Hallucinations: None Insight: Fair Judgement: Fair Vital Signs (Past 24 Hours): Last Vital Signs Temp 36.9 C 01/26/25 06:42 Pulse 88 01/25/25 14:14 Resp 16 01/26/25 06:42 BP 100/70 01/26/25 06:43 Pulse Ox 98 01/26/25 06:42 O2 Del Method Room Air 01/26/25 06:42 Exam Statement: A physical exam was performed in the ED for the purposes of medical clearance. I accept that physical as correct and adequate for the purposes of the inpatient physical exam. Results & Data ([facility]) Current Inpatient Medications Current Inpatient Medications: Current Inpatient Medications Acetaminophen (Acetaminophen 325 Mg Tab) 650 mg PO Q4H PRN PRN Reason: Headache or Minor Fever Stop: 02/24/25 13:06 Al Hydrox/Mg Hydrox/Simethicone (Aluminum/Magnesium Susp 30 Ml Udc) 30 ml PO Q4H PRN PRN Reason: GI Upset Stop: 02/24/25 13:06 Aripiprazole (Aripiprazole 10 Mg Tab) 10 mg PO QAM [facility] Stop: 02/26/25 08:59 Bismuth Subsalicylate (Bismuth Subsalicylate 262 Mg Chew) 2 tab PO Q30M PRN PRN Reason: Loose Stool/Diarrhea Stop: 02/24/25 13:06 Cephalexin HCl (Cephalexin 500 Mg Cap) 500 mg PO BID [facility]; Protocol Stop: 01/30/25 20:59 Last Admin: 01/26/25 08:56 Dose: 500 mg Hydroxyzine HCl (Hydroxyzine Hcl 25 Mg Tab) 50 mg PO HSZ PRN PRN Reason: Insomnia Stop: 02/24/25 13:06 Hydroxyzine HCl (Hydroxyzine Hcl 25 Mg Tab) 25 mg PO Q4H PRN PRN Reason: Anxiety Stop: 02/24/25 13:06 Last Admin: 01/25/25 17:21 Dose: 25 mg Hydroxyzine HCl (Hydroxyzine Hcl 25 Mg Tab) 50 mg PO HS IRASEMA Stop: 02/25/25 21:59 Lamotrigine (Lamotrigine 25 Mg Tab) 25 mg PO QAM [facility]; Protocol Stop: 02/25/25 11:59 Last Admin: 01/26/25 12:47 Dose: 25 mg Magnesium Hydroxide (Magnesium Hydroxide Susp 30 Ml Udc) 30 ml PO DAILY PRN PRN Reason: Constipation Stop: 02/24/25 13:06 Miscellaneous (Remove Nicoderm Patch) 1 each N/A DAILY@59 [facility] Stop: 02/25/25 08:58 Last Admin: 01/26/25 09:03 Dose: 1 each Nicotine (Nicotine 7 Mg/24 Hr Tdsy) [facility] Stop: 02/25/25 08:59 Last Admin: 01/26/25 09:03 Dose: 1 patch Sertraline HCl (Sertraline Hcl 100 Mg Tablet) 200 mg PO QAM [facility] Stop: 02/26/25 08:59 Sodium Chloride (Sodium Chloride 0.65% Na Soln 45 Ml ([place])) 1 - 2 sprays NA PRN PRN PRN Reason: Nasal Dryness/Congestion Stop: 02/24/25 13:06
[2025-01-27 07:44] LABS: Cholesterol 164.0 mg/dl (0-200); HDL Cholesterol 74.0 mg/dl; Triglycerides 49.0 mg/dl (0-150)
[2025-01-27] MEDS: SERTRALINE HCL 100 MG TABLET PO SCH (08:39)
[2025-01-27 09:02] LABS: Hemoglobin A1C 5.5 % (4.5-5.6)
--- NOTE | 2025-01-27 09:53 | Psychiatric Progress Note ---
Date of Service January 27, 2025 Impression / Recommendations Impression DAVID VORA is a 19-year-old woman who currently lives with roommate, has a history of BPD, QIANA, MDD, and was admitted on 01/25/25 13:07 on a 201 voluntary commitment for suicidal ideation. Concern for a bipolar 2 illness currently in a major depressive episode given timeline of mood symptoms and limited improvement on SSRI and antipsychotic combination and early age of onset of depression. BPD symptoms appear to be less prominent and well-controlled. Patient has history of emotional neglect. Concern for hypomanic episodes with increased promiscuity and impulsive spending. Plan to optimize aripiprazole for mood stabilization and initiate lamotrigine for bipolar depression; medication side effects and adverse effects discussed with patient and agreeable. Patient would benefit from connection to outpatient psychiatrist given complexity. Currently does not appear to be an imminent risk of harm to herself. A: Ongoing depression and anxiety but some improvement today. Discussed her restrictive eating, potential anorexia. History of hypomania and positive MDQ consistent with likely bipolar type 2 current depressive episode, agree with lamictal and increased abilify short-term while lamictal is titrated. Tolerating medication adjustments so far. Discussed safety planning and scheduling support meeting. Awaiting response from potential IOP/PHP in [place]. Outpatient options limited by providers and services that will accept her insurance. Labwork reviewed and stable for ongoing use of abilify. She agrees to Vit D supplementation as just outside normal range. Overall, I spent a total of 38 minutes on this case including meeting with the patient, reviewing the chart, nursing report, multidisciplinary team meeting, orders, and documentation. (1) Bipolar 2 disorder, major depressive episode: (2) Borderline personality disorder in adult: (3) UTI (urinary tract infection): (4) Eating disorder, unspecified: Plan 01/27/2025: -Start Vit D supplementation 15 mcg daily -Director Of Premium Seat Sales consult -Needs: complete safety planning, have support meeting, confirm aftercare 01/26/2025:The patient was admitted to the [facility] ([facility] mental health unit) on q15 min checks (behavioral with suicide precautions) for safety. The patient will participate in group, recreational, and milieu therapies and will be offered additional individual and family sessions as clinically appropriate. Continue home sertraline 200 mg daily Increase aripiprazole to 10 mg daily Start lamotrigine 25 mg daily Start hydroxyzine 50 mg at bedtime Labs: Hemoglobin A1c, fasting lipids, vitamin D, vitamin B12 Questionnaires: Mood disorder questionnaire Inventory Assets Strengths: independent, support seeking Needs: outpatient connection, medication management Suicide Risk Level Suicide Risk Level: Moderate (q15 min suicide checks) (depression and anxiety with SI but mood improving and feels safe in the hospital and feels able to ask for support) Risk Factors Assessment Male: No : Yes Do You Have Access To A Gun?: No Health Problems: No Mental Health Diagnoses: Yes Substance Use Disorders: No Previous Attempt: No Family History of Suicide: No Previous Psychiatric Hospitalization: Yes Hopelessness: No Protective Factors Assessment Protestant Beliefs: No : No Responsible for Young Children: No Employed: No Stable Relationships: Yes Supportive Family: Yes Good Rapport with Provider: Yes Absence of Any Risk Factors Above: No Interval History Identifying Information DAVID 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 Chief Complaint "Some anxiety this morning". Review of Systems Sleep Information Total Hours of Sleep: 7.75 Meal Information Percent Meal Consumed - Breakfast: 100 Percent Meal Consumed - Lunch: 0 Percent Meal Consumed - Dinner: 95 Nutrition Comment: Subjective Subjective Patient was seen & assessed and interval progress reviewed with nursing. Last night rated her mood as "optimistic". Attending groups. Today reports her mood is "good" after having some anxiety this morning but she found journaling helpful for this. less grogginess today compared with yesterday. Attending groups. Notes that she is "feeling more stable". Tolerating increase in abilify and initiation of lamictal so far. Discusses that she's never recieved treatment for anorexia before but has struggled with this for many years and has been constricting more in recent months as it's felt like "the only thing I can control". She's interested in speaking with a rubber tire and tubes supervisor. She's hopeful she'll be approved to start IOP in [place] and can then return to home and do classes online. Reflects on past episodes of abhilash/hypomania and reviewed positive screen on Mood Disorder Questionnaire. Physical Exam Psychiatric Orientation: alert and oriented x 3 Apperance: appropriately dressed and appropriately groomed Eye Contact: + fair eye contact Motor Behavior: no abnormal motor movements Speech: normal rate/rhythm/volume of speech Affect: + constricted affect Mood: + depressed mood and + anxious mood Thought Process: goal directed thought process Thought Content: reality based without delusions Suicidal Thoughts: + reports suicidal thoughts (intermittent but lessening) Homicidal Thoughts: denies homicidal thoughts Hallucinations: no auditory hallucinations and no visual hallucinations Insight: + fair insight Judgment: + fair judgement Vital Signs (Past 24 Hours) Last Vital Signs Temp 37.2 C 01/27/25 06:00 Pulse 77 01/27/25 06:00 Resp 18 01/27/25 06:00 BP 103/67 01/27/25 06:00 Pulse Ox 97 01/27/25 06:00 O2 Del Method Room Air 01/27/25 06:00 Results & Data ([facility]) Laboratory Results Laboratory Results - last 24 hr 01/27/25 06:58 Estimat Average Glucose 111 Hemoglobin A1c 5.5 Triglycerides 49 Cholesterol 164 LDL Cholesterol, Calc 80 VLDL Cholesterol, Calc 10 HDL Cholesterol 74 Cholesterol/HDL Ratio 2.2 Vitamin B12 182 25-OH Vitamin D Total 29.7 L Current Inpatient Medications Current Inpatient Medications: Current Inpatient Medications Acetaminophen (Acetaminophen 325 Mg Tab) 650 mg PO Q4H PRN PRN Reason: Headache or Minor Fever Stop: 02/24/25 13:06 Al Hydrox/Mg Hydrox/Simethicone (Aluminum/Magnesium Susp 30 Ml Udc) 30 ml PO Q4H PRN PRN Reason: GI Upset Stop: 02/24/25 13:06 Aripiprazole (Aripiprazole 10 Mg Tab) 10 mg PO QAM IRASEMA Stop: 02/26/25 08:59 Last Admin: 01/27/25 08:38 Dose: 10 mg Bismuth Subsalicylate (Bismuth Subsalicylate 262 Mg Chew) 2 tab PO Q30M PRN PRN Reason: Loose Stool/Diarrhea Stop: 02/24/25 13:06 Cephalexin HCl (Cephalexin 500 Mg Cap) 500 mg PO BID IRASEMA; Protocol Stop: 01/30/25 20:59 Last Admin: 01/27/25 08:39 Dose: 500 mg Hydroxyzine HCl (Hydroxyzine Hcl 25 Mg Tab) 50 mg PO HSZ PRN PRN Reason: Insomnia Stop: 02/24/25 13:06 Hydroxyzine HCl (Hydroxyzine Hcl 25 Mg Tab) 25 mg PO Q4H PRN PRN Reason: Anxiety Stop: 02/24/25 13:06 Last Admin: 01/25/25 17:21 Dose: 25 mg Hydroxyzine HCl (Hydroxyzine Hcl 25 Mg Tab) 50 mg PO HS IRASEMA Stop: 02/25/25 21:59 Last Admin: 01/26/25 21:34 Dose: 50 mg Lamotrigine (Lamotrigine 25 Mg Tab) 25 mg PO QAM IRASEMA; Protocol Stop: 02/25/25 11:59 Last Admin: 01/27/25 08:38 Dose: 25 mg Magnesium Hydroxide (Magnesium Hydroxide Susp 30 Ml Udc) 30 ml PO DAILY PRN PRN Reason: Constipation Stop: 02/24/25 13:06 Miscellaneous (Remove Nicoderm Patch) 1 each N/A DAILY@0859 [facility] Stop: 02/25/25 08:58 Last Admin: 01/27/25 08:44 Dose: 1 each Nicotine (Nicotine 7 Mg/24 Hr Tdsy) 1 patch TD QAM IRASEMA Stop: 02/25/25 08:59 Last Admin: 01/27/25 08:44 Dose: 1 patch Sertraline HCl (Sertraline Hcl 100 Mg Tablet) 200 mg PO QAM IRASEMA Stop: 02/26/25 08:59 Last Admin: 01/27/25 08:39 Dose: 200 mg Sodium Chloride (Sodium Chloride 0.65% Na Soln 45 Ml ([place])) 1 - 2 sprays NA PRN PRN PRN Reason: Nasal Dryness/Congestion Stop: 02/24/25 13:06 Mental Health & Subst Abuse Tx Therapist Name of Therapist: Yossi Armstrong Date of Therapist Appointment: 01/31/25 Section Repairer Name of Section Repairer: none Post Discharge Appointments Primary Care Physician Name Of Family Doctor/PCP: Jillian Sierra Contact Information Discharge Discharge Address: [address] [place] [address]
[2025-01-27] MEDS: NICOTINE POLACRILEX 2 MG GUM MT PRN (10:29)
[2025-01-27] MEDS: CHOLECALCIFEROL 10 MCG (400 UNITS) TAB PO SCH (14:18)
[2025-01-27] MEDS: CYANOCOBALAMIN (B-12) 500 MCG TABLET PO SCH (17:21)
--- NOTE | 2025-01-28 09:52 | Psychiatric Progress Note ---
Date of Service January 28, 2025 Impression / Recommendations Impression DAVID VORA is a 19-year-old woman who currently lives with roommate, has a history of BPD, QIANA, MDD, and was admitted on 01/25/25 13:07 on a 201 voluntary commitment for suicidal ideation. Concern for a bipolar 2 illness currently in a major depressive episode given timeline of mood symptoms and limited improvement on SSRI and antipsychotic combination and early age of onset of depression. BPD symptoms appear to be less prominent and well-controlled. Patient has history of emotional neglect. Concern for hypomanic episodes with increased promiscuity and impulsive spending. Plan to optimize aripiprazole for mood stabilization and initiate lamotrigine for bipolar depression; medication side effects and adverse effects discussed with patient and agreeable. Patient would benefit from connection to outpatient psychiatrist given complexity. Currently does not appear to be an imminent risk of harm to herself. A: Mood improving and had support session with her friend today. Disposition planning remains a challenge due to her insurance and lack of local outpatient options that take her insurance. Additionally challenging is that she discussed with me her plan to return to [place] and we reviewed outpatient providers and referrals in progress but then told SW during support meeting that she plans to stay locally. She identifies her lack of access to outpatient psychiatry as a precipitant to her admission but now seems less concerned about this. Will finalize referrals tomorrow after she clarifies plan for where she wants to live after discharge. Overall, I spent a total of 36 minutes on this case including meeting with the patient, reviewing the chart, nursing report, multidisciplinary team meeting, orders, and documentation. (1) Bipolar 2 disorder, major depressive episode: (2) Borderline personality disorder in adult: (3) UTI (urinary tract infection): (4) Eating disorder, unspecified: Plan 01/28/2025: -Vit B12 added per refrigerator mover recommendation -Continue current medications and tx plan, working on disposition planning 01/27/2025: -Start Vit D supplementation 15 mcg daily -Television Installer consult -Needs: complete safety planning, have support meeting, confirm aftercare 01/26/2025:The patient was admitted to the [facility] ([facility] mental health unit) on q15 min checks (behavioral with suicide precautions) for safety. The patient will participate in group, recreational, and milieu therapies and will be offered additional individual and family sessions as clinically appropriate. Continue home sertraline 200 mg daily Increase aripiprazole to 10 mg daily Start lamotrigine 25 mg daily Start hydroxyzine 50 mg at bedtime Labs: Hemoglobin A1c, fasting lipids, vitamin D, vitamin B12 Questionnaires: Mood disorder questionnaire Inventory Assets Strengths: independent, support seeking Needs: outpatient connection, medication management Suicide Risk Level Suicide Risk Level: Moderate (q15 min suicide checks) (depression and anxiety with SI [employer] but mood improving and now denies SI and feels safe in the hospital and feels able to ask for support) Risk Factors Assessment Male: No : Yes Do You Have Access To A Gun?: No Health Problems: No Mental Health Diagnoses: Yes Substance Use Disorders: No Previous Attempt: No Family History of Suicide: No Previous Psychiatric Hospitalization: Yes Hopelessness: No Protective Factors Assessment Yazidism Beliefs: No : No Responsible for Young Children: No Employed: No Stable Relationships: Yes Supportive Family: Yes Good Rapport with Provider: Yes Absence of Any Risk Factors Above: No Interval History Identifying Information DAVID 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 Chief Complaint "Good but I'm tired for some reason". Review of Systems Sleep Information Total Hours of Sleep: 7.25 Meal Information Percent Meal Consumed - Breakfast: 50 Percent Meal Consumed - Lunch: 100 Percent Meal Consumed - Dinner: 100 Subjective Subjective Patient was seen & assessed and interval progress reviewed with nursing and social work. Attending groups. Had a good visit with his friend. Rated her mood as "frustrated". Watched a movie with peers. Met with the refrigerator mover yesterday. Today reports her mood is stable and denies any SI. Eager for discharge. Tells me she plans to return to [place] with her mother and sister after they visit on Wednesday and that her mom is in support of this plan. Declines JUSTINO or having us reach out to her mother or sister to discuss treatment plan. She likes the current medications despite reporting some fatigue today, she doesn't think this is related to her medications. Finds that my "mind is pretty quiet" which she hasn't experienced in awhile and is pleased about. eating well. Physical Exam Psychiatric Orientation: alert and oriented x 3 Apperance: appropriately dressed and appropriately groomed Eye Contact: + fair eye contact Motor Behavior: no abnormal motor movements Speech: normal rate/rhythm/volume of speech Affect: + constricted affect Mood: + anxious mood Thought Process: goal directed thought process Thought Content: reality based without delusions Suicidal Thoughts: denies suicidal thoughts Homicidal Thoughts: denies homicidal thoughts Hallucinations: no auditory hallucinations and no visual hallucinations Insight: + fair insight Judgment: + limited judgement Vital Signs (Past 24 Hours) Last Vital Signs Temp 37.4 C 01/28/25 06:00 Pulse 67 01/28/25 06:00 Resp 18 01/28/25 06:00 BP 110/71 01/28/25 06:00 Pulse Ox 97 01/28/25 06:00 O2 Del Method Room Air 01/28/25 06:00 Results & Data ([facility]) Current Inpatient Medications Current Inpatient Medications: Current Inpatient Medications Acetaminophen (Acetaminophen 325 Mg Tab) 650 mg PO Q4H PRN PRN Reason: Headache or Minor Fever Stop: 02/24/25 13:06 Al Hydrox/Mg Hydrox/Simethicone (Aluminum/Magnesium Susp 30 Ml Udc) 30 ml PO Q4H PRN PRN Reason: GI Upset Stop: 02/24/25 13:06 Aripiprazole (Aripiprazole 10 Mg Tab) 10 mg PO QAM IRASEMA Stop: 02/26/25 08:59 Last Admin: 01/28/25 08:42 Dose: 10 mg Bismuth Subsalicylate (Bismuth Subsalicylate 262 Mg Chew) 2 tab PO Q30M PRN PRN Reason: Loose Stool/Diarrhea Stop: 02/24/25 13:06 Cephalexin HCl (Cephalexin 500 Mg Cap) 500 mg PO BID [facility]; Protocol Stop: 01/30/25 20:59 Last Admin: 01/28/25 08:42 Dose: 500 mg Cyanocobalamin (Cyanocobalamin (B-12) 500 Mcg Tablet) 500 mcg PO QAM IRASEMA Stop: 02/26/25 16:44 Last Admin: 01/28/25 08:42 Dose: 500 mcg Hydroxyzine HCl (Hydroxyzine Hcl 25 Mg Tab) 50 mg PO HSZ PRN PRN Reason: Insomnia Stop: 02/24/25 13:06 Hydroxyzine HCl (Hydroxyzine Hcl 25 Mg Tab) 25 mg PO Q4H PRN PRN Reason: Anxiety Stop: 02/24/25 13:06 Last Admin: 01/25/25 17:21 Dose: 25 mg Hydroxyzine HCl (Hydroxyzine Hcl 25 Mg Tab) 50 mg PO HS [facility] Stop: 02/25/25 21:59 Last Admin: 01/27/25 20:36 Dose: 50 mg Lamotrigine (Lamotrigine 25 Mg Tab) [facility]; Protocol Stop: 02/25/25 11:59 Last Admin: 01/28/25 08:43 Dose: 25 mg Magnesium Hydroxide (Magnesium Hydroxide Susp 30 Ml Udc) 30 ml PO DAILY PRN PRN Reason: Constipation Stop: 02/24/25 13:06 Miscellaneous (Remove Nicoderm Patch) 1 each N/A DAILY@59 [facility] Stop: 02/25/25 08:58 Last Admin: 01/28/25 08:47 Dose: 1 each Nicotine (Nicotine 7 Mg/24 Hr Tdsy) 1 patch TD [facility] Stop: 02/25/25 08:59 Last Admin: 01/28/25 08:47 Dose: 1 patch Nicotine Polacrilex (Nicotine Polacrilex 2 Mg Gum) 1 piece MT Q2H PRN PRN Reason: smoking cessation Stop: 02/26/25 10:01 Last Admin: 01/28/25 08:49 Dose: 1 piece Sertraline HCl (Sertraline Hcl 100 Mg Tablet) 200 mg PO QAM [facility] Stop: 02/26/25 08:59 Last Admin: 01/28/25 08:42 Dose: 200 mg Sodium Chloride (Sodium Chloride 0.65% Na Soln 45 Ml ([place])) 1 - 2 sprays NA PRN PRN PRN Reason: Nasal Dryness/Congestion Stop: 02/24/25 13:06 Vitamin D (Cholecalciferol 10 Mcg (400 Units) Tab) 15 mcg [facility] Stop: 02/26/25 13:59 Last Admin: 01/28/25 08:42 Dose: 15 mcg Mental Health & Subst Abuse Tx Therapist Name of Therapist: Yossi Armstrong Date of Therapist Appointment: 01/31/25 Full Decator Operator Name of Full Decator Operator: none Post Discharge Appointments Primary Care Physician Name Of Family Doctor/PCP: Jillian Sierra Contact Information Discharge Discharge Address: [address] [place] [address]
--- NOTE | 2025-01-29 09:04 | Discharge Summary ---
Date of Service January 29, 2025 History of Present Illness Patient reports recent increase in suicidal thoughts secondary to financial stressors of being able to pay for school, rent, and her bills. Complains of no motivation, anhedonia, low energy, low poor concentration, increase in passive SI, increased worthlessness. Says this has been getting worse since mid December. Reports recent episode lasting 3 days where she had poor sleep but improved mood and energy and was engaging in more activities and doing things she normally does not do like hanging out with new friends. Says that this has occurred 2-3 times in the past 12 months and in the past she has been more promiscuous and spending money she does not have during these times. Reports depression for starting in the sixth grade. Denies distressing dreams or hypervigilance. Complains of difficulty maintaining sleep and that Vistaril was helpful. Has been using escalating doses of caffeine to cope with depression and has been restricting food for emotional control. Denies current SI. She reports since last hospitalization she has been adherent to her medications Zoloft 200 mg daily and Abilify 5 mg daily. Says that her anxiety is better however depression has not improved. Currently does not have a psychiatrist. Discontinued clonidine because her blood pressure got too low. Denies having a drug or alcohol problem. Recently started smoking cigarettes. Childhood history: Parents at 1 years of age and she regularly witnessed verbal arguments between them. Reports being more withdrawn as a kid and experienced emotional neglect and isolation. Denies physical or sexual abuse. Family psychiatric history: Father with alcohol abuse and depression and both paternal and maternal grandmother with depression. Physical Exam Vital Signs (Past 24 Hours) Last Vital Signs Temp 36.6 C 01/29/25 06:00 Pulse 78 01/29/25 06:34 Resp 18 01/29/25 06:00 BP 120/70 01/29/25 06:34 Pulse Ox 98 01/29/25 06:00 O2 Del Method Room Air 01/29/25 06:00 Principal Diagnosis Bipolar Affective Disorder Type II, current depressive episode Psychiatric Data See daily stay summary. In short, patient was engaged with the social/therapeutic milieu of the unit, safety was maintained and the patient was cooperative with care. Medication changes included increase of abilify for mood stabilization, initation of lamictal for mood stabilization/depression and Vistaril 50mg HS for insomnia and they tolerated this well. Baseline labs of fasting glucose, fasting lipid profile, and weight were preformed (see labwork results below). Recommend repeat weight in one month. Recommend repeat fasting glucose, HbA1c and fasting lipid profile every 12 weeks and then annually. If symptoms arise recommend checking BP, EKG, prolactin level as clinically indicated or relevant. A support session was held and safety plan was completed prior to discharge. They participated in safety planning and in discussions about ways to seek support and recognizing warning signs and utilizing coping skills. Reviewed ways to have their safety plan and contacts easily available should thoughts of SI re-emerge in the future. Reviewed importance of seeking emergency care should SI intensify, worsen or should they feel unsafe in the future which they agree to do. On the day of discharge they stated their mood was "very optimistic and excited" and remained future-oriented including spending time with her roommate, celebrating Halloween, seeing her family, relaxing and engaging in aftercare appointments for case management with referral to psychiatry, therapy, possible IOP if she returns to [place], option to engage with [employer] [facility] [employer] [facility] care and advocacy. Day of Discharge Assessment Today the patient voices readiness for discharge. They note improvement in mood and anxiety. They deny thoughts of harm to self or others. Thoughts are organized and they are clinically improved from admission. There is no evidence of psychosis. They improved in the hospital with support and medication adjustments. They agree to take medications as prescribed and keep follow-up appointments. At the time of the discharge they are deemed to be stable and appropriate for outpatient level of care. They are not deemed to be at imminent risk of harm to self or others. They are aware of emergency and crisis services. Knows to call 911 or go to nearest emergency care center if in a crisis which cannot be handled as an outpatient. Suicide risk assessment: Acute risk is low given improvement in mood and denial of SI, lack of access to lethal means, improvement in sleep, hopefulness. Chronic risk is moderate given some non-modifiable risk factors: psychiatric co-morbid diagnoses, periods of impulsivity, emotional reactivity, prior psychiatric hospitalizations, mood disorder, cluster B personality disorder, but also with protective factors including student, good social support, sense of responsibility to family and social supports, outpatient care in place, positive coping skills, positive problem solving, willingness to engage with treatment and self-observation. Counseled on ways to reduce acute and chronic risk including engaging with outpatient providers, using safety plan if needed, utilizing supports, taking medication, and using coping skills. Modifiable risk factors of [SI and depression] were addressed during hospitalization through development of new coping skills, support meeting, safety planning, and medication adjustments. Discharge physical exam: See admission H&P, MSE per above and day of discharge summary. Overall, I spent a total of 35 minutes on this case including meeting with the patient, reviewing the chart, nursing report, multidisciplinary team meeting, discharge orders, anticipatory planning, safety planning, risk assessment and documentation. Transition of Care Transition Of Care Record: was reviewed with the patient Advance Directives Advance Directives Information Provided: Yes Advance Directives: No Mental Health Advance Directive: No Advance Directives on File: No Living Will: No Power of Fishing Accessories Maker: No Advance Directives Reason:: Declines as Mental Health Visit. Suicide Risk Level Suicide Risk Level Comments: see assessment above Risk Factors Assessment Male: No : Yes Do You Have Access To A Gun?: No Health Problems: No Mental Health Diagnoses: Yes Substance Use Disorders: No Previous Attempt: No Family History of Suicide: No Previous Psychiatric Hospitalization: Yes Hopelessness: No Protective Factors Assessment Bahai Beliefs: No : No Responsible for Young Children: No Employed: No (but student) Stable Relationships: Yes Supportive Family: Yes Good Rapport with Provider: Yes Absence of Any Risk Factors Above: No Tobacco Cessation at Discharge Tobacco Cessation Medication Prescribed at Discharge: Offered & Pt Refused Discharge Data Lab Results 01/25/25 01/25/25 01/25/25 10:07 10:10 10:12 WBC 12.09 H RBC 4.59 Hgb 14.3 Hct 41.7 MCV 90.8 MCH 31.2 MCHC 34.3 RDW Std Deviation 41.4 RDW Coeff of Jian 12.6 Plt Count 357 MPV 9.4 Immature Gran % (Auto) 0.4 Neut % (Auto) 77.8 Lymph % (Auto) 16.3 Hopkins % (Auto) 4.0 Eos % (Auto) 0.8 Baso % (Auto) 0.7 Neut # (Auto) 9.40 H Lymph # (Auto) 1.97 Hopkins # (Auto) 0.48 Eos # (Auto) 0.10 Baso # (Auto) 0.09 Immature Gran # (Auto) 0.05 Sodium 138 Potassium 3.9 Chloride 104 Carbon Dioxide 25 Anion Gap 9 BUN 12 Creatinine 0.54 L Est Cr Clr Drug Dosing 142.3 eGFR 134.25 BUN/Creatinine Ratio 22.2 H Glucose 106 H Estimat Average Glucose Hemoglobin A1c Calcium 10.0 Total Bilirubin 0.5 AST 19 ALT 15 Alkaline Phosphatase 82 Total Protein 8.0 Albumin 5.0 Globulin 3.0 Albumin/Globulin Ratio 1.7 Triglycerides Cholesterol LDL Cholesterol, Calc VLDL Cholesterol, Calc HDL Cholesterol Cholesterol/HDL Ratio Vitamin B12 25-OH Vitamin D Total TSH 0.877 Urine Color Yellow Urine Appearance Cloudy A Urine pH 6.0 Ur Specific Fontana 1.020 Urine Protein Negative Urine Glucose (UA) Negative Urine Ketones Negative Urine Blood Negative Urine Nitrite Positive A Urine Bilirubin Negative Urine Urobilinogen Negative Ur Leukocyte Esterase 3+ H Urine WBC (Auto) 6-10 H Urine RBC (Auto) 0-2 U Hyaline Cast (Auto) 0-2 U Epithel Cells (Auto) 11-20 H Urine Bacteria (Auto) 4+ H POC Ur Test NEG Urine Comment Salicylates < 3.0 L Urine Opiates Screen Neg Ur Methadone, Qual Neg Urine Fentanyl Screen Neg Acetaminophen < 3 L Urine Barbiturates Neg Ur Phencyclidine (PCP) Neg U Amphetamin/Meth Scrn Neg MDMA (Ecstasy) Screen Neg U Benzodiazepines Scrn Neg Ur Cocaine Metabolite Neg U Marijuana (THC) Screen Pos H Ethyl Alcohol mg/dL < 10.0 SARS-CoV-2, RNA, NAAT NEGATIVE 01/27/25 06:58 WBC RBC Hgb Hct MCV MCH MCHC RDW Std Deviation RDW Coeff of Jian Plt Count MPV Immature Gran % (Auto) Neut % (Auto) Lymph % (Auto) Hopkins % (Auto) Eos % (Auto) Baso % (Auto) Neut # (Auto) Lymph # (Auto) Hopkins # (Auto) Eos # (Auto) Baso # (Auto) Immature Gran # (Auto) Sodium Potassium Chloride Carbon Dioxide Anion Gap BUN Creatinine Est Cr Clr Drug Dosing eGFR BUN/Creatinine Ratio Glucose Estimat Average Glucose 111 Hemoglobin A1c 5.5 Calcium Total Bilirubin AST ALT Alkaline Phosphatase Total Protein Albumin Globulin Albumin/Globulin Ratio Triglycerides 49 Cholesterol 164 LDL Cholesterol, Calc 80 VLDL Cholesterol, Calc 10 HDL Cholesterol 74 Cholesterol/HDL Ratio 2.2 Vitamin B12 182 25-OH Vitamin D Total 29.7 L TSH Urine Color Urine Appearance Urine pH Ur Specific Font[place] Urine Protein Urine Glucose (UA) Urine Ketones Urine Blood Urine Nitrite Urine Bilirubin Urine Urobilinogen Ur Leukocyte Esterase Urine WBC (Auto) Urine RBC (Auto) U Hyaline Cast (Auto) U Epithel Cells (Auto) Urine Bacteria (Auto) POC Ur Test Urine Comment Salicylates Urine Opiates Screen Ur Methadone, Qual Urine Fentanyl Screen Acetaminophen Urine Barbiturates Ur Phencyclidine (PCP) U Amphetamin/Meth Scrn MDMA (Ecstasy) Screen U Benzodiazepines Scrn Ur Cocaine Metabolite U Marijuana (THC) Screen Ethyl Alcohol mg/dL SARS-CoV-2, RNA, NAAT Hospital Course (1) Bipolar 2 disorder, major depressive episode: (2) Borderline personality disorder in adult: (3) UTI (urinary tract infection): (4) Eating disorder, unspecified: Plan 01/29/2025: -She feels safe and ready for discharge and would like to leave today -Aftercare with additional supports now in place 01/28/2025: -Vit B12 added per vp strategic planning recommendation -Continue current medications and tx plan, working on disposition planning 01/27/2025: -Start Vit D supplementation 15 mcg daily -Wool Classer consult -Needs: complete safety planning, have support meeting, confirm aftercare 01/26/2025:The patient was admitted to the [facility] on q15 min checks (behavioral with suicide precautions) for safety. The patient will participate in group, recreational, and milieu therapies and will be offered additional individual and family sessions as clinically appropriate. Continue home sertraline 200 mg daily Increase aripiprazole to 10 mg daily Start lamotrigine 25 mg daily Start hydroxyzine 50 mg at bedtime Labs: Hemoglobin A1c, fasting lipids, vitamin D, vitamin B12 Questionnaires: Mood disorder questionnaire Mental Health & Subst Abuse Tx Therapist Name of Therapist: Yossi [facility] Date of Therapist Appointment: 01/31/25 Egg Processing Supervisor Name of Egg Processing Supervisor: none Post Discharge Appointments Primary Care Physician Name Of Family Doctor/PCP: Jillian Sierra Smoking Cessation Counseling Tobacco Cessation Medication Prescribed at Discharge: Offered & Pt Refused Other #1: Name of Aftercare Appointment: [facility] Phone Number of Aftercare Appointment: [phone] Time of Aftercare Appointment: Not in network with your insurance Aftercare Appointment Comment: referral submitted online on 01/26/25 (email: [email or web address]) #2: Name of Aftercare Appointment: Student care and advocacy - [facility] Phone Number of Aftercare Appointment: [phone] Date of Aftercare Appointment: 02/08/25 Time of Aftercare Appointment: 3PM Aftercare Appointment Comment: Link will be sent to your [facility] email #3: Name of Aftercare Appointment: HEALS (eating disorder program) for [facility] students Phone Number of Aftercare Appointment: [phone] Aftercare Appointment Comment: Contact [facility] to start referral process [phone] Contact Information Discharge Discharge Address: [address] [place] [id number] Discharge Plan Discharge Items Patient Disposition: Home - Self-Care Reason For Visit: UNSPECIFIED DEPRESSIVE DISORDER Discharge Diagnosis: Bipolar Affective Disorder, current depressive episode Condition on Discharge: Good Activity: Resume your previous activity Non-emergency contact: Primary Care Provider, Therapist and Apparatus Repair Mechanic Call non-emergency contact if: you have any medication questions and your symptoms worsen Follow-up/Referrals: [place] [Primary Care Provider] - Diet: Regular Addtl Attending Provider Instructions: Optional mobile apps we discussed: -Suicide safety plan -Virtual Hope Box SPECIAL CARE INSTRUCTIONS: 1. Follow through with your scheduled aftercare appointments. If unable to keep an appointment, please call to reschedule. 2. Take your medication only as prescribed. Medication should not be changed or stopped without the approval of your doctor. In the event of worsening symptoms or concerns about side effects, contact your doctor immediately. 3. Utilize new healthy coping skills, anger management skills, and stress management skills learned during your hospitalization. Journal feelings and process them with a support person. Identify stressors or situations that may result in relapse, deterioration or inappropriate behaviors and develop a plan to deal with those issues. 4. If your coping skills are ineffective and you are in crisis, contact your outpatient providers for direction. If unable to reach your providers, please call the [facility] CRISIS LINE AT , go to the [facility] walk-in center at [address] [place] [address], [address], [place], or go to the closest Emergency Room. 5. Avoid alcohol and un-prescribed drugs. 6. You have been provided with the Mental Health Advance Directives Pamphlet for your review. 7. Your condition is stable for discharge to outpatient level of care, but recovery is an ongoing process. Ifthoughts to harm yourself or others return, follow the safety plan developed during your stay. Planning for a safe return home includes securing weapons. Our treatment team recommends weaponsbe removed from the home until your outpatient provider reassesses your progress. In rare cases where the items themselvescannot be removed, guns and ammunitionshould be secured separatelyand keys stored by a reliable personoutside of the home. If you were admitted on an involuntary commitment, the police or other legal authorities may be involved in this process. AFTERCARE APPOINTMENTS: * Please call your insurance company prior to your scheduled appointment to confirm your aftercare providers are covered. Take your insurance information to your appointments. WHO TO CALL AND WHEN: Medical Emergencies: For questions or emergencies related to your hospital stay, please contact the Inpatient Behavioral Health Unit at [phone]. A psychiatric nursing aide is on-call 09/11 for the Behavioral Health Unit for emergencies At any time you feel your situation is an emergency, you may also call 911 immediately. National Crisis Hotline: 980 Pending Studies at Discharge: No Stand-Alone Forms: My [facility] [email or web address], Smoking Cessation Medications and DC Order Prescriptions: New cephalexin 500 mg Capsule 500 mg PO BID 1 Days Qty: 2 0RF aripiprazole [Abilify] 10 mg Tablet 10 mg PO QAM 30 Days Qty: 30 0RF hydroxyzine HCl 50 mg tablet 50 mg PO HS 30 Days Qty: 30 0RF lamotrigine [Lamictal] 25 mg Tablet 25 mg PO DAILY 30 Days Qty: 45 0RF Rx Instructions: 25 mg orally daily for 2 weeks and then increase to 50mg daily (2 tabs) on 02/12/2025. cyanocobalamin (vitamin B-12) 500 mcg Tablet 500 mcg PO QAM 30 Days Qty: 30 0RF cholecalciferol (vitamin D3) [Vitamin D3] 10 mcg (400 unit) Tablet 15 mcg PO QAM 30 Days Qty: 45 0RF sertraline 200 mg capsule 200 mg PO DAILY 30 Days Qty: 30 0RF Continued hydroxyzine HCl 50 mg tablet 50 mg PO BID PRN (Reason: Anxiety) Discontinued sertraline 100 mg tablet 200 mg PO DAILY aripiprazole 5 mg tablet 5 mg PO DAILY Discharge Orders: Discharge Order (Routine); Ordered 01/29/25 Ordered By: Shira Cardoza Admission Data Admit Date/Time: 01/25/25 13:07 Attending Provider: William Ferrara Admit Provider: William Ferrara Primary Care Provider: [facility] Other Interventions: Discharge Summary Assessment (RN) Last Done: 01/29/25 12:57 PSY Interdisciplinary Discharge Planning Last Done: 01/29/25 13:46 Coding Level of Care Code 60070 D/C day mgmt > 30 min Diagnoses Bipolar 2 disorder, major depressive episode F31.81 Borderline personality disorder in adult F60.3 UTI (urinary tract infection) N39.0 Eating disorder, unspecified F50.9
[2025-01-29 13:02] LABS: Marijuana Quant, GCMS Urine 404 ng/mL (<5)
== END 2025-01-29 14:13 | disposition home or self-care (01) | DRG 885 ==
LOC: ED 09:50 → 3S 13:07